=== PATIENT | male | born 1975 | race American Indian/Alaskan Native ===

== ENCOUNTER 2017-03-02 09:02 | Day surgery (SDC) | payer MEDICARE ==
--- NOTE | 2017-03-01 15:32 | History and Physical Report ---
History of Present Illness Date of examination: 03/01/17 Date of admission: 03/02/17 Chief complaint: 41-year-old man with painful swelling, and limitation of movement of long duration. Being treated with injections, anti-inflammatories, rehabilitation program with no improvement and therefore being admitted for arthroscopy, synovectomy and manipulation under anesthesia. Past History Past Medical History: arthritis, other (gout) Medications and Allergies Allergies Allergy/AdvReac Type Severity Reaction Status Date / Time No Known Allergies Allergy Verified 02/24/17 13:29 Home Medications Medication Instructions Recorded Confirmed Last Taken Type Allopurinol [Zyloprim] 300 mg PO QDAY 06/16/14 02/24/17 07/05/14 History traMADol [Ultram] 50 mg PO Q6HR PRN #14 tablet 06/16/14 02/24/17 Unknown Rx Ibuprofen [Motrin 800 MG tab] 800 mg PO Q8H PRN #20 tablet 11/03/14 02/24/17 Unknown Rx Indomethacin [Indocin] 25 mg PO PRN PRN 02/24/17 02/24/17 Unknown History Active Meds: Active Medications Cefazolin Sodium (Ancef/Sterile Water 2 Gm/20 Ml) 2 gm in 20 mls @ 80 mls/hr IV PREOP NR PRN Reason: Protocol Stop: 03/02/17 06:01 Review of Systems All systems: negative Exam - Constitutional General appearance: Present: no acute distress, well-nourished - EENT Eyes: Present: PERRL ENT: hearing intact, clear oral mucosa - Neck Neck: Present: supple, normal ROM - Respiratory Respiratory effort: normal Respiratory: bilateral: CTA - Cardiovascular Heart Sounds: Present: S1 & S2. Absent: rub, click - Extremities Extremities: pulses symmetrical, No edema, abnormal (Moderate limping, right- sided right knee with diffuse swelling, range of motion extension lag -10 flexion 85. Collateral ligaments are stable, patella for joint stable. No popliteal masses, no joint effusion. No neurovascular deficit.) Peripheral Pulses: within normal limits - Abdominal General gastrointestinal: Present: soft, non-tender, non-distended, normal bowel sounds Male genitourinary: Present: normal - Integumentary Integumentary: Present: clear, warm, dry - Musculoskeletal Musculoskeletal: gait normal, strength equal bilaterally - Psychiatric Psychiatric: appropriate mood/affect, intact judgment & insight - Neurologic Neurologic: CNII-XII intact, moves all extremities Assessment and Plan - Patient Problems (1) Arthrofibrosis of knee joint Status: Chronic Qualifiers: Laterality: right Qualified Code(s): M24.661 - Ankylosis, right knee Plan to address problem: manipulation under anesthesia, arthroscopy synovectomy.Procedure, complications and outcome discussed. We'll treat gout symptomatically.
[~2017-03-02 09:02] MED LIST: ADRENALIN IV ONE; ADRENALIN ONE; ANCEF/STERILE WATER 2 GM/20 ML 2 GM/20 ML SYRINGE IV NR; DILAUDID IV PRN; MARCAINE 0.5% 30 ML INFILTRATI ONE; MARCAINE 0.5% IJ ONE; PEPCID PO NR; VERSED IV NR
[2017-03-02] MEDS ORDERED: LACTATED RINGERS 1,000 ML IV SCH (10:00)
--- NOTE | 2017-03-02 10:36 | Anesthesia Day of Surgery ---
Anesthesia Day of Surgery - Day of Surgery Patient Examined: Yes Patient H&P Reviewed: Yes Patient is NPO: Yes
--- NOTE | 2017-03-02 10:36 | Anesthesia Consultation ---
Anesthesia Consult and Med Hx Date of service: 03/02/17 - Airway Anesthetic Teeth Evaluation: Good, Caps (top front teeth) ROM Head & Neck: Adequate Mental/Hyoid Distance: Adequate Mallampati Class: Class II Intubation Access Assessment: Probably Good - Pulmonary Exam CTA: Yes - Cardiac Exam Cardiac Exam: RRR - Pre-Operative Health Status ASA Pre-Surgery Classification: ASA2 Proposed Anesthetic Plan: General - Pulmonary Hx Smoking: No Hx Asthma: Yes ( CHILD ONLY) Hx Sleep Apnea: No (MACRINA PRE SCREEN HIGH RISK) - Cardiovascular System Hx Hypertension: No - Central Nervous System Hx Seizures: No CVA: No - Endocrine Hx End Stage Renal Disease: No Hx Cirrhosis: No Hx Non-Insulin Dependent Diabetes: No Hx Thyroid Disease: No Hx Hyperthyroidism: No - Other Systems Hx Cancer: No Hx Obesity: Yes
[2017-03-02] MEDS ORDERED: ZOFRAN IV PRN ×2 (11:00→13:33)
[2017-03-02] MEDS ORDERED: ZOFRAN ONE (11:05)
[2017-03-02] MEDS ORDERED: XYLOCAINE MPF 2% ONE (11:05)
[2017-03-02] MEDS ORDERED: DIPRIVAN 10 MG/ML IV ONE (11:06)
[2017-03-02] MEDS ORDERED: DILAUDID ONE ×2 (11:06→12:20)
[2017-03-02] MEDS ORDERED: ROBINUL ONE (11:22)
[2017-03-02] MEDS ORDERED: NEOSTIGMINE ONE (11:22)
[2017-03-02] MEDS ORDERED: ADRENALIN IV ONE (12:16)
[2017-03-02] MEDS ORDERED: ANCEF ONE (12:17)
[2017-03-02] MEDS ORDERED: MARCAINE 0.5% IJ ONE (13:00)
--- NOTE | 2017-03-02 13:03 | Discharge Summary ---
Providers - Providers Date of discharge: 03/02/17 Attending physician: KEITH TOPETE Primary care physician: AMORTIZATION SCHEDULE CLERK Hospitalization Reason for admission: arthro fibrosis/ gout/ synovitis right knee Condition: Stable Procedures: Arthroscopy/ debridment/ synovectomy right knee Hospital course: uneventful Disposition: DC-01 TO HOME OR SELFCARE - Discharge Diagnoses (1) Arthrofibrosis of knee joint Status: Chronic Qualifiers: Laterality: right Qualified Code(s): M24.661 - Ankylosis, right knee Core Measure Documentation - Palliative Care Palliative Care/ Comfort Measures: Not Applicable - Core Measures Any of the following diagnoses?: none Exam - Constitutional Vitals: Temp Pulse Resp BP Pulse Ox 99.0 F 98 H 18 132/96 99 03/02/17 10:12 03/02/17 10:12 03/02/17 10:12 03/02/17 10:12 03/02/17 10:12 Plan Activity: no driving until cleared by PCP, fall precautions Weight Bearing Status: Full Weight Bearing Diet: regular Wound: per your surgeon's advice Durable Medical Equipment Needed Upon Discharge: Crutches Follow up with: TELMA MALIK MD [Primary Care Provider] - 7 Days KEITH TOPETE MD [Staff Physician] - 7 Days
[2017-03-02] MEDS ORDERED: NACL 0.9% 1000 ML 1,000 ML ONE (13:11)
[2017-03-02] MEDS ORDERED: TYLENOL #3 PO PRN (13:31)
[2017-03-02] MEDS ORDERED: DILAUDID IV PRN (13:33)
--- NOTE | 2017-03-02 15:03 | Post Anesthesia Evaluation ---
- Post Anesthesia Evaluation Patient Participated: Yes Airway Patent: Yes Stable Respiratory Function: Yes Nausea/Vomiting: No Temp > 96.8F: Yes Pain Manageable: Yes Adequeate Hydration: Yes Anesthesia Complications: No Block Receding Appropriately: Not Applicable Patient on Ventilator: No
--- NOTE | 2017-03-02 16:36 | Operative Report ---
PREOPERATIVE DIAGNOSES: Gouty arthrosis with synovitis/arthrofibrosis, right knee. POSTOPERATIVE DIAGNOSES: Gouty arthrosis with synovitis/arthrofibrosis, right knee. OPERATIVE PROCEDURE: Debridement of right knee with synovectomy. SURGEON: Remi Stiles MD MCAT TUTOR: Rachell Wills CSA ANESTHESIA: General. TOURNIQUET TIME: 1 hour 10 minutes. PROCEDURE: The patient was taken to surgery suite. Satisfactory analgesia obtained with general anesthetics. Right lower limb prepped with ChloraPrep, satisfactorily draped. The patient procedure sites were confirmed. The standard arthroscopy portal anterior, superior, medial, and lateral were established. Inflow and outflow was then established. Diagnostic arthroscopy was carried out. 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 Synovial thickening with synovial deposits of crystalline substance to the synovial tissue, similar findings in all compartments.. Similar findings in the lateral and patellofemoral components. The meniscus generally appeared intact; however, with deposition of amorphous white crystalline structures. With the diagnostic arthroscopy was completed, the full-radius resector, medial, lateral and patellofemoral compartment and intercondylar area was then systematically debrided of the amorphous white crystalline substance from the articular surface and synovectomy was carried out. Biopsy was obtained from the intercondylar area and submitted to lab and joint fluid specimen was submitted for cultures, aerobic as well as anaerobic and Gram stain. Following thorough debridement, the knee joint cavity was thoroughly irrigated, scope and cannulas were withdrawn. Portals were infiltrated with 0.25% Marcaine plain for postop pain control. The patient was transferred to recovery room to be discharged when discharge criteria are met. HOMEGOING INSTRUCTIONS: Elevation, localized packs, crutch ambulation, weightbearing as tolerated, range of motion and quad hamstring exercises program. Follow up in 7-10 days. The patient will start on Outpatient Rehabilitation Program on 03/03/2017. JOB# [id number] BRII/ANA FINLEY
[2017-03-02 17:32] VITALS: BP 122/82
== END 2017-03-02 16:13 | disposition home or self-care (01) ==
LOC: OR 09:02
PROVIDERS: ATTEND Orthopaedic Surgery
DX: M24.661 Ankylosis, right knee (principal); M19.90 Unspecified osteoarthritis, unspecified site; M10.9 Gout, unspecified; E66.9 Obesity, unspecified; Z68.36 Body mass index [BMI] 36.0-36.9, adult; Z79.899 Other long term (current) drug therapy
CPT/HCPCS: 29875; 87116; 88304; 88305; 88311; 97116; 97161; J0171; J0690; J1170; J2250; J2405; J2704; J7030; J7120; J2710

== ENCOUNTER 2020-02-22 15:55 | Emergency (ER) | payer MEDICARE ==
[2020-02-22] MEDS ORDERED: IBUPROFEN 600 MG TAB PO ONE (16:12)
--- NOTE | 2020-02-22 16:12 | Event Note ---
ED Screening Note ED Screening Note: gout right knee right elbow began yesterday takes allopurinol and started a steroid dose pack last night last had a gout flare approximately two months ago he has not been feeling like fever at home no cough no SOB no n/v/d no sick contacts no recent travel no COVID exposure This initial assessment/diagnostic orders/clinical plan/treatment(s) is/are subject to change based on patients health status, clinical progression and re- assessment by fellow clinical providers in the ED. Further treatment and workup at subsequent clinical providers discretion. Patient/guardian urged not to elope from the ED as their condition may be serious if not clinically assessed and managed. Initial orders include: labs ibuprofen given for fever
[2020-02-22 16:50] LABS: Basophils % (Auto) 0.2 % (0.0-1.8); Hematocrit 37.7 % (35.5-45.6); Hemoglobin 12.2 gm/dl (11.8-15.2); Lymphocytes # (Auto) 0.8 K/mm3 (1.2-5.4); Lymphocytes % (Auto) 5.8 % (13.4-35.0); Mean Corpuscular HGB Conc 33 % (32-34); Mean Corpuscular Volume 90 fl (84-94); Monocytes # (Auto) 1.5 K/mm3 (0.0-0.8); Monocytes % (Auto) 10.6 % (0.0-7.3); Platelet Count 284 K/mm3 (140-440); Red Blood Count 4.21 M/mm3 (3.65-5.03); Red Cell Distribution Width 16.2 % (13.2-15.2)
[2020-02-22 17:09] LABS: Albumin 4.2 g/dL (3.9-5); Calcium 9.8 mg/dL (8.4-10.2); Uric Acid 11.2 mg/dL (3.5-7.6)
[2020-02-22 17:19] LABS: Erythrocyte Sedimentation Rate 50 mm/Hr (0-20)
[2020-02-22 17:27] LABS: C-Reactive Protein 38.6 mg/dL (0.00-1.30)
[2020-02-22] MEDS ORDERED: COLCHICINE 0.6 MG CAP PO ONE (17:54)
[2020-02-22] MEDS ORDERED: oxyCODONE /ACETAMINOPHEN 5-325MG TAB PO ONE (17:54)
[2020-02-22] MEDS ORDERED: SODIUM CHLORIDE 0.9% 1000 ML 1,000 ML IV ONE (18:14)
--- NOTE | 2020-02-22 18:14 | Emergency Department Report ---
ED General Adult HPI - General Chief complaint: Pain General Stated complaint: RT SIDE KNEE/ELBOW PAIN Time Seen by Provider: 02/22/20 16:07 Source: patient Mode of arrival: Wheelchair Limitations: No Limitations - History of Present Illness Initial comments: 44-year-old -[place] Citizen male presents to the emergency room complaining of right elbow right knee pain from gout flareup. It was reported that patient started a steroid pack last night. Patient does take allopurinol. Patient does admit that he has been eating meats. He denies any recent alcohol use. It was noted that patient had an elevated temperature of 101.9 and elevated blood pr essure 160/104 and tachycardic at 116. Patient reported that he is been feeling feverish but no cough runny nose abdominal pain sore throat dysuria. Severity scale (0 -10): 8 - Related Data Home Medications Medication Instructions Recorded Confirmed Last Taken allopurinoL [Zyloprim] 300 mg PO QDAY 06/16/14 03/02/17 03/01/17 08:00 Indomethacin [Indocin] 25 mg PO PRN PRN 02/24/17 03/02/17 02/23/17 09:00 Previous Rx's Medication Instructions Recorded Last Taken Type traMADoL [Ultram] 50 mg PO Q6HR PRN #14 tablet 06/16/14 03/01/17 20:00 Rx Ibuprofen [Motrin 800 MG tab] 800 mg PO Q8H PRN #20 tablet 11/03/14 02/23/17 09:00 Rx Colchicine 0.6 mg PO BID 7 Days #14 capsule 02/22/20 Unknown Rx Oxycodone HCl/Acetaminophen 1 each PO Q6HR PRN #12 tablet 02/22/20 Unknown Rx [Percocet 7.5/325 mg] predniSONE [Deltasone] 10 mg PO DAILY #70 tablet 02/22/20 Unknown Rx Allergies Allergy/AdvReac Type Severity Reaction Status Date / Time No Known Allergies Allergy Verified 02/24/17 13:29 ED Review of Systems ROS: Stated complaint: RT SIDE KNEE/ELBOW PAIN Other details as noted in HPI ED Past Medical Hx - Past Medical History Previous Medical History?: Yes Hx Hypertension: No Hx Seizures: No Hx Asthma: Yes ( CHILD ONLY) Additional medical history: gout - Surgical History Past Surgical History?: No - Social History Smoking Status: Never Smoker Substance Use Type: Alcohol - Medications Home Medications: Home Medications Medication Instructions Recorded Confirmed Last Taken Type allopurinoL [Zyloprim] 300 mg PO QDAY 06/16/14 03/02/17 03/01/17 08:00 History traMADoL [Ultram] 50 mg PO Q6HR PRN #14 tablet 06/16/14 03/02/17 03/01/17 20:00 Rx Ibuprofen [Motrin 800 MG tab] 800 mg PO Q8H PRN #20 tablet 11/03/14 03/02/17 02/23/17 09:00 Rx Indomethacin [Indocin] 25 mg PO PRN PRN 02/24/17 03/02/17 02/23/17 09:00 History Colchicine 0.6 mg PO BID 7 Days #14 capsule 02/22/20 Unknown Rx Oxycodone HCl/Acetaminophen 1 each PO Q6HR PRN #12 tablet 02/22/20 Unknown Rx [Percocet 7.5/325 mg] predniSONE [Deltasone] 10 mg PO DAILY #70 tablet 02/22/20 Unknown Rx ED Physical Exam - General Limitations: No Limitations ED Course Vital Signs 02/22/20 02/22/20 15:56 16:08 Temperature 101.2 F H 101.9 F H Pulse Rate 118 H 116 H Respiratory 20 Rate Blood Pressure 160/104 Blood Pressure 150/102 [Right] O2 Sat by Pulse 99 Oximetry ED Medical Decision Making - Lab Data Result diagrams: 02/22/20 16:25 02/22/20 16:25 Laboratory Tests 02/22/20 02/22/20 16:25 16:25 WBC 14.1 H RBC 4.21 Hgb 12.2 Hct 37.7 MCV 90 MCH 29 MCHC 33 RDW 16.2 H Plt Count 284 Lymph % (Auto) 5.8 L [place] % (Auto) 10.6 H Eos % (Auto) 0.0 Baso % (Auto) 0.2 Lymph # 0.8 L [place] # 1.5 H Eos # 0.0 Baso # 0.0 Seg Neutrophils % 83.4 H Seg Neutrophils # 11.7 H ESR 50 Sodium 138 Potassium 3.9 Chloride 97.2 L Carbon Dioxide 23 Anion Gap 22 BUN 12 Creatinine 1.6 H Estimated GFR 57 BUN/Creatinine Ratio 8 Glucose 140 H Uric Acid 11.2 H Calcium 9.8 Total Bilirubin 1.60 H AST 27 ALT 38 Alkaline Phosphatase 193 H C-Reactive Protein 38.60 H Total Protein 9.1 H Albumin 4.2 Albumin/Globulin Ratio 0.9 - Medical Decision Making 44-year-old -[place] Citizen male presents to the emergency room complaining of right elbow right knee pain from gout flareup. It was reported that patient started a steroid pack last night. Patient does take allopurinol. Patient does admit that he has been eating meats. He denies any recent alcohol use. It was noted that patient had an elevated temperature of 101.9 and elevated blood pressure 160/104 and tachycardic at 116. Patient reported that he is been feeling feverish but no cough runny nose abdominal pain sore throat dysuria. Spoke to Dr. Zapien attending physician who recommend patient to be admitted talk to Dr. Sinha hospitalist he evaluated patient and felt that patient would be best managed on outpatient basis. Dr. Franz recommend patient to be on prednisone 50 mg for 5 days and taper by 10 mg every 5 days until he is completed. He also recommend colchicine 0.6 mg twice daily for 7 and Percocet 7.5 mg every 6 hours for the next 3 days. I discussed with patient the plan. Also discussed with patient that he needs to follow-up with his primary care provider in the next 3 to 5 days to inform him of his labs. Patient had a bump in his creatinine from 1.2-1.6. Patient also had 100 deciliters of protein in urine with Isolette. Patient had marginally elevated LFTs. Uric acid was 11.2. Critical care attestation.: If time is entered above; I have spent that time in minutes in the direct care of this critically ill patient, excluding procedure time. ED Disposition Clinical Impression: Gout flare, Fever, Hypertension Disposition: DC-01 TO HOME OR SELFCARE Is pt being admited?: No Does the pt Need Aspirin: No Condition: Stable Instructions: Hypertension (ED) Additional Instructions: Please take medications as prescribed. Follow-up with your primary care provider in the next 3 to 5 days. As you need to have your kidney function repeated blood pressure checked. Do not operate heavy machinery while taking the Percocet. Please straight away from organ meat red meat alcohol seafood. Increase your water intake by 2 L daily. Prescriptions: Colchicine 0.6 mg PO BID 7 Days #14 capsule predniSONE [Deltasone] 10 mg PO DAILY #70 tablet Oxycodone HCl/Acetaminophen [Percocet 7.5/325 mg] 1 each PO Q6HR PRN #12 tablet PRN Reason: Pain Referrals: PRIMARY CAREMD [Primary Care Provider] - 3-5 Days CECI ALAS MD [Staff Physician] - 3-5 Days Forms: Work/School Release Form(ED)
[2020-02-22 19:47] VITALS: BP 123/78
--- NOTE | 2020-02-22 20:22 | Consultation ---
History of Present Illness - Reason for Consult Consult date: 02/22/20 Management of acute gout Requesting physician: VINCENT HINOJOSA - History of Present Illness 44-year-old -[place] male comes in for severe right knee and right elbow pain for the last 3 to 4 days. Patient started on low-dose steroids yesterday. Patient has been eating red meat. Patient is on allopurinol for prevention of gout. In the emergency room his uric acid was around 11. Is has right knee and elbow warm to touch. Patient has a temperature of 101.9. No cough or chills. No exposure to coronavirus. Past History Past Medical History: other (Gout and asthma) Past Surgical History: No surgical history Social history: no significant social history, lives with family, full code Family history: hypertension Medications and Allergies Allergies Allergy/AdvReac Type Severity Reaction Status Date / Time No Known Allergies Allergy Verified 02/24/17 13:29 Home Medications Medication Instructions Recorded Confirmed Last Taken Type allopurinoL [Zyloprim] 300 mg PO QDAY 06/16/14 03/02/17 03/01/17 08:00 History traMADoL [Ultram] 50 mg PO Q6HR PRN #14 tablet 06/16/14 03/02/17 03/01/17 20:00 Rx Ibuprofen [Motrin 800 MG tab] 800 mg PO Q8H PRN #20 tablet 11/03/14 03/02/17 0 02/23/17 09:00 Rx Indomethacin [Indocin] 25 mg PO PRN PRN 02/24/17 03/02/17 02/23/17 09:00 History Colchicine 0.6 mg PO BID 7 Days #14 capsule 02/22/20 Unknown Rx Oxycodone HCl/Acetaminophen 1 each PO Q6HR PRN #12 tablet 02/22/20 Unknown Rx [Percocet 7.5/325 mg] predniSONE [Deltasone] 10 mg PO DAILY #70 tablet 02/22/20 Unknown Rx Review of Systems All systems: negative Constitutional: fever, no weight loss, no weight gain, no chills, no sweats, no night sweats Ears, nose, mouth and throat: no ear pain, no ear discharge, no tinnitis, no decreased hearing Cardiovascular: no chest pain, no orthopnea, no palpitations, no rapid/irregular heart beat Gastrointestinal: no abdominal pain, no nausea, no vomiting, no diarrhea, no constipation Genitourinary Male: no urinary frequency, no urinary hesitancy, no nocturia Rectal: no pain Musculoskeletal: hot joints (Right knee and right elbow is swollen and warm to touch), no neck stiffness, no neck pain, no shooting arm pain, no arm numbness/tingling Integumentary: redness (Redness of the right knee and right elbow joint), no rash, no pruritis Neurological: no seizures, no syncope Psychiatric: no anxiety, no memory loss, no change in sleep habits, no sleep disturbances, no insomnia, no change in appetite Endocrine: no cold intolerance, no heat intolerance, no polyphagia, no excessive thirst, no polydipsia Hematologic/Lymphatic: no easy bruising, no easy bleeding Allergic/Immunologic: no urticaria, no allergic rhinitis, no wheezing Exam - Constitutional Vitals: Temp Pulse Resp BP Pulse Ox 97.8 F 88 18 123/78 100 02/22/20 19:47 02/22/20 19:47 02/22/20 19:47 02/22/20 19:47 02/22/20 19:47 General appearance: Present: no acute distress, well-nourished - EENT Eyes: Present: PERRL ENT: hearing intact, clear oral mucosa - Neck Neck: Present: supple, normal ROM - Respiratory Respiratory effort: normal Respiratory: bilateral: CTA - Cardiovascular Heart rate: 78 Rhythm: regular Heart Sounds: Present: S1 & S2. Absent: rub, click - Extremities Extremities: pulses symmetrical, No edema, abnormal (Right knee and right elbow swollen and warm to touch) Extremity abnormal: tenderness (Tenderness on the right elbow and right knee), other (Right knee and right elbow warm to touch and swollen but patient able to walk easily) Peripheral Pulses: within normal limits - Abdominal General gastrointestinal: Present: soft, non-tender, non-distended, normal bowel sounds Male genitourinary: Present: normal - Integumentary Integumentary: Present: clear, warm, dry - Musculoskeletal Musculoskeletal: gait normal, strength equal bilaterally - Psychiatric Psychiatric: appropriate mood/affect, intact judgment & insight - Neurologic Neurologic: CNII-XII intact, moves all extremities Results - Labs CBC & Chem 7: 02/22/20 16:25 02/22/20 16:25 Labs: Abnormal lab results 02/22/20 02/22/20 Range/Units 16:25 16:25 WBC 14.1 H (4.5-11.0) K/mm3 RDW 16.2 H (13.2-15.2) % Lymph % (Auto) 5.8 L (13.4-35.0) % [place] % (Auto) 10.6 H (0.0-7.3) % Lymph # 0.8 L (1.2-5.4) K/mm3 [place] # 1.5 H (0.0-0.8) K/mm3 Seg Neutrophils % 83.4 H (40.0-70.0) % Seg Neutrophils # 11.7 H (1.8-7.7) K/mm3 Chloride 97.2 L (98-107) mmol/L Creatinine 1.6 H (0.8-1.5) mg/dL Glucose 140 H (75-100) mg/dL Uric Acid 11.2 H (3.5-7.6) mg/dL Total Bilirubin 1.60 H (0.1-1.2) mg/dL Alkaline Phosphatase 193 H (35-129) units/L C-Reactive Protein 38.60 H (0.00-1.30) mg/dL Total Protein 9.1 H (6.3-8.2) g/dL Short CBC 02/22/20 Range/Units 16:25 WBC 14.1 H (4.5-11.0) K/mm3 Hgb 12.2 (11.8-15.2) gm/dl Hct 37.7 (35.5-45.6) % Plt Count 284 (140-440) K/mm3 BMP 02/22/20 16:25 Sodium 138 Potassium 3.9 Chloride 97.2 L Carbon Dioxide 23 BUN 12 Creatinine 1.6 H Glucose 140 H Calcium 9.8 Liver Function 02/22/20 Range/Units 16:25 Total Bilirubin 1.60 H (0.1-1.2) mg/dL AST 27 (5-40) units/L ALT 38 (7-56) units/L Alkaline Phosphatase 193 H (35-129) units/L Albumin 4.2 (3.9-5) g/dL Short CBC 02/22/20 Range/Units 16:25 WBC 14.1 H (4.5-11.0) K/mm3 Hgb 12.2 (11.8-15.2) gm/dl Hct 37.7 (35.5-45.6) % Plt Count 284 (140-440) K/mm3 BMP 02/22/20 16:25 Sodium 138 Potassium 3.9 Chloride 97.2 L Carbon Dioxide 23 BUN 12 Creatinine 1.6 H Glucose 140 H Calcium 9.8 Liver Function 02/22/20 Range/Units 16:25 Total Bilirubin 1.60 H (0.1-1.2) mg/dL AST 27 (5-40) units/L ALT 38 (7-56) units/L Alkaline Phosphatase 193 H (35-129) units/L Albumin 4.2 (3.9-5) g/dL Assessment and Plan - Patient Problems (1) Acute gout Current Visit: Yes Status: Acute Qualifiers: Gout site: knee Laterality: right Plan to address problem: Right knee and right elbow swollen and warm to touch. Patient's uric acid is 11.2 Patient initiated on tapering dose of prednisone starting from 50 mg for 5 days then 40 mg for 5 days then 30 mg for 5 days then 20 mg for 5 days and stop with 10 mg for 5 days. Patient also initiated on colchicine 0.6 twice daily for 7 days and Percocet and probenecid and to continue allopurinol. Follow-up with PCP as outpatient. (2) BRIAN (acute kidney injury) Current Visit: Yes Status: Acute Plan to address problem: To drink plenty of fluids and recheck creatinine level as outpatient NSAIDS were not given (3) Discharge planning issues Current Visit: Yes Status: Acute Plan to address problem: Patient discharged home with tapering dose of prednisone from 50 mg to 10 mg over 25 to 30 days. Also patient was given an given Percocets and probenecid and colchicine 0.6 twice a day.
[2020-02-22 20:34] LABS: Bilirubin,Urine NEG (Negative); Blood,Urine SM (Negative); Color,Urine Amber (Yellow); Mucus,Urine FEW /HPF
== END 2020-02-22 20:25 | disposition home or self-care (01) ==
LOC: ED 15:55
DX: M10.9 Gout, unspecified (principal); R50.9 Fever, unspecified; I10 Essential (primary) hypertension; J45.909 Unspecified asthma, uncomplicated; Z79.1 Long term (current) use of non-steroidal anti-inflammatories (NSAID); Z79.899 Other long term (current) drug therapy
CPT/HCPCS: 36415; 80053; 81001; 84550; 85025; 85652; 86140; 99283; J7030

== ENCOUNTER 2020-12-29 10:26 | Outpatient (CLI) | payer MEDICARE ==
[2020-12-29] MEDS ORDERED: LIDOCAINE (4%) 40 MG/ML TOPICAL SOLN 50 ML BOTTLE TP ONE (11:59)
== END 2020-12-29 10:27 | disposition home or self-care (01) ==
LOC: WOUND 10:26
PROVIDERS: ATTEND Surgery
DX: S30.860A Insect bite (nonvenomous) of lower back and pelvis, initial encounter (principal); M10.9 Gout, unspecified; L02.31 Cutaneous abscess of buttock; W57.XXXA Bitten or stung by nonvenomous insect and other nonvenomous arthropods, initial encounter; Y93.89 Activity, other specified; Y92.89 Other specified places as the place of occurrence of the external cause; Y99.8 Other external cause status
CPT/HCPCS: 11042; G0463; 99214

== ENCOUNTER 2021-01-05 13:17 | Emergency (ER) | payer MEDICARE ==
--- NOTE | 2021-01-05 16:36 | Event Note ---
ED Screening Note Date of service: 01/05/21 Time: 16:35 ED Screening Note: 45-year-old -[place] male presents to the emergency room stating that his gout has flared up in his left hand right knee. Patient also is being of followed by Dr. 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 Patient had debridement done was on IV antibiotics. He states that he is having more pain. He reports he had talked to Dr. Martin and she recommended patient to come in to be evaluated. This initial assessment/diagnostic orders/clinical plan/treatment(s) is/are subject to change based on patients health status, clinical progression and re- assessment by fellow clinical providers in the ED. Further treatment and workup at subsequent clinical providers discretion. Patient/guardian urged not to elope from the ED as their condition may be serious if not clinically assessed and managed. Initial orders include:
[2021-01-05 17:07] LABS: Hematocrit 27.1 % (35.5-45.6); Hemoglobin 8.8 gm/dl (11.8-15.2); Mean Corpuscular HGB Conc 32 % (32-34); Mean Corpuscular Volume 84 fl (84-94); Platelet Count 232 K/mm3 (140-440); Red Blood Count 3.25 M/mm3 (3.65-5.03)
[2021-01-05] MEDS ORDERED: LACTATED RINGERS 1,000 ML IV ONE (17:07)
[2021-01-05] MEDS ORDERED: HYDROmorphone 1 MG/1 ML INJ IV ONE (17:07)
[2021-01-05] MEDS ORDERED: COLCHICINE 0.6 MG TAB PO ONE ×2 (17:08→17:56)
[2021-01-05] MEDS ORDERED: ACETAMINOPHEN 500 MG TAB PO ONE (17:08)
--- NOTE | 2021-01-05 17:09 | Emergency Department Report ---
ED General Adult HPI - General Chief complaint: Weakness Stated complaint: WEAKNESS PUI?: No Time Seen by Provider: 01/05/21 16:58 Source: patient, RN notes reviewed, old records reviewed Mode of arrival: Wheelchair Limitations: Physical Limitation - History of Present Illness Initial comments: The patient was evaluated in the emergency department for symptoms described in the history of present illness. He/she was evaluated in the context of the global COVID-19 pandemic, which necessitated consideration that the patient mi ght be at risk for infection with the virus that causes COVID-19. Institutional protocols and algorithms that pertain to the evaluation of patients at risk for COVID-19 are in a state of rapid change based on information released by regulatory bodies including the CDC and federal and state organizations. These policies and algorithms were followed during the patient's care in the emergency department. Please note that these policies, procedures and recommendations changed on a rapid basis. The patient is a 45-year-old gentleman, with a history of body mass index 31.9, presumed gout, recently admitted to this hospital for right gluteal cellulitis and abscess, status post incision and drainage of gluteal abscess, also with a history of chronic anemia, and chronic leukocytosis. Primary CARE doctor: Dr. Porfirio Jones General surgeon: Dr Meena Martínez The patient presents to the ER today with a complaint of "my wound nurse told me to come here today." Apparently, the wound nurse was concerned about the patient's right gluteal wound. The patient himself complains of generalized weakness, polyarthritis, left wrist pain, question fever, without headache, neck pain, chest pain, abdominal pain, new/different shortness of breath, posterior leg pain and leg swelling. The patient endorses generalized weakness, he denies loss of taste and smell. He denies urinary symptoms, and denies hematemesis and bright red blood per rectum. He has diffuse arthralgias, most prominent in his left wrist, and left hand, which is nontraumatic, pain is throbbing, increases with palpation and decreases with rest. -: Gradual, days(s) Location: buttocks (Right gluteal cheek), left, upper extremity Severity scale (0 -10): 10 Quality: aching Consistency: constant Improves with: rest Worsens with: movement - Related Data Home Medications Medication Instructions Recorded Confirmed Last Taken allopurinoL [Zyloprim] 300 mg PO QDAY 06/16/14 12/08/20 03/01/17 08:00 Previous Rx's Medication Instructions Recorded Last Taken Type HYDROcodone/APAP 5-325 [[place] 1 each PO Q4H PRN #14 tablet 12/15/20 Unknown Rx 5-325 mg TAB] Linezolid [Zyvox] 600 mg PO Q12HR #20 tablet 12/15/20 Unknown Rx allopurinoL [Zyloprim] 300 mg PO QDAY tablet 12/15/20 Unknown Rx Acetaminophen [Non-Aspirin Extra 500 mg PO Q6HR PRN #30 tablet 01/05/21 Unknown Rx Strength] Ibuprofen [Motrin 800 MG tab] 800 mg PO Q8HR PRN #30 tablet 01/05/21 Unknown Rx Ibuprofen [Motrin] 600 mg PO Q8H PRN #30 tablet 01/05/21 Unknown Rx Magnesium Oxide 400 mg PO QDAY #30 tablet 01/05/21 Unknown Rx methylPREDNISolone [Medrol 4MG 4 mg PO QDAY #1 tab.ds.pk 01/05/21 Unknown Rx DOSEPAK (21 tabs)] Allergies Allergy/AdvReac Type Severity Reaction Status Date / Time No Known Allergies Allergy Verified 02/24/17 13:29 ED Review of Systems ROS: Stated complaint: WEAKNESS Other details as noted in HPI Constitutional: malaise, weakness, other (Denies loss of taste and smell). denies: fever Eyes: denies: eye discharge ENT: denies: congestion Respiratory: denies: cough, shortness of breath Cardiovascular: palpitations (Heart racing and palpitation). denies: chest pain Gastrointestinal: denies: abdominal pain, nausea, vomiting, hematemesis, melena, hematochezia Musculoskeletal: joint swelling, arthralgia, myalgia Neurological: weakness Psychiatric: anxiety ED Past Medical Hx - Past Medical History Hx Hypertension: No Hx Heart Attack/AMI: No Hx Congestive Heart Failure: No Hx Diabetes: No Hx Liver Disease: No Hx Renal Disease: No Hx Seizures: No Hx Asthma: Yes ( CHILD ONLY) Hx COPD: No Additional medical history: gout - Social History Smoking Status: Never Smoker - Medications Home Medications: Home Medications Medication Instructions Recorded Confirmed Last Taken Type allopurinoL [Zyloprim] 300 mg PO QDAY 06/16/14 12/08/20 03/01/17 08:00 History HYDROcodone/APAP 5-325 [[place] 1 each PO Q4H PRN #14 tablet 12/15/20 Unknown Rx 5-325 mg TAB] Linezolid [Zyvox] 600 mg PO Q12HR #20 tablet 12/15/20 Unknown Rx allopurinoL [Zyloprim] 300 mg PO QDAY tablet 12/15/20 Unknown Rx Acetaminophen [Non-Aspirin Extra 500 mg PO Q6HR PRN #30 tablet 01/05/21 Unknown Rx Strength] Ibuprofen [Motrin 800 MG tab] 800 mg PO Q8HR PRN #30 tablet 01/05/21 Unknown Rx Ibuprofen [Motrin] 600 mg PO Q8H PRN #30 tablet 01/05/21 Unknown Rx Magnesium Oxide 400 mg PO QDAY #30 tablet 01/05/21 Unknown Rx methylPREDNISolone [Medrol 4MG 4 mg PO QDAY #1 tab.ds.pk 01/05/21 Unknown Rx DOSEPAK (21 tabs)] ED Physical Exam - General Limitations: Physical Limitation General appearance: alert, anxious, in distress, obese - Head Head exam: Present: atraumatic, normocephalic - Eye Eye exam: Present: normal appearance, EOMI. Absent: nystagmus - ENT ENT exam: Present: normal exam, normal orophraynx, mucous membranes moist, normal external ear exam - Neck Neck exam: Present: normal inspection, full ROM. Absent: tenderness, meningismus - Respiratory Respiratory exam: Present: normal lung sounds bilaterally. Absent: respiratory distress, wheezes, rales, rhonchi, stridor, decreased breath sounds - Cardiovascular Cardiovascular Exam: Present: normal rhythm, tachycardia, normal heart sounds. Absent: bradycardia, irregular rhythm, systolic murmur, diastolic murmur, rubs, gallop - GI/Abdominal GI/Abdominal exam: Present: soft. Absent: distended, tenderness, guarding, rebound, rigid, pulsatile mass - Rectal Rectal exam: Present: normal inspection (Chaperoned by nurse Kristi Stout. Surgical site healing well, without redness, pus, streaking or obvious necrotic tissue) - Extremities Exam Extremities exam: Present: normal inspection, tenderness (The left wrist is diffusely tender, without redness, pus or streaking. Range of motion limited secondary to pain, but patient does have partial passive and active range of motion of the left wrist), other (2+ pulses noted in the bilateral upper and lower extremities. There is no long bony tenderness. The muscular compartments are soft. The pelvis is stable. There is no palpable cord.). Absent: calf tenderness - Back Exam Back exam: Present: normal inspection. Absent: tenderness, CVA tenderness (R), CVA tenderness (L), paraspinal tenderness, vertebral tenderness - Neurological Exam Neurological exam: Present: alert, other (No facial droop. Tongue midline. Extraocular movements intact bilaterally. Facial sensation intact to light touch in V1, V2, V3 distribution bilaterally. 5 and a 5 strength in 4 extremities. Sensation intact to light touch in 4 extremities.) - Psychiatric Psychiatric exam: Present: anxious - Skin Skin exam: Present: warm, dry, intact, normal color ED Course Vital Signs 01/05/21 01/05/21 01/05/21 14:07 20:00 20:16 Temperature 98.5 F Pulse Rate 122 H 105 H 107 H Respiratory 18 22 24 Rate Blood Pressure 130/94 126/93 Blood Pressure 142/106 [Right] O2 Sat by Pulse 97 99 99 Oximetry 01/05/21 01/05/21 01/05/21 20:30 20:46 21:00 Temperature Pulse Rate 101 H 98 H 99 H Respiratory 21 16 21 Rate Blood Pressure 122/83 130/94 117/82 Blood Pressure [Right] O2 Sat by Pulse 99 100 100 Oximetry 01/05/21 21:15 Temperature Pulse Rate 96 H Respiratory 22 Rate Blood Pressure 122/83 Blood Pressure [Right] O2 Sat by Pulse Oximetry - Reevaluation(s) Reevaluation #1: 01/05/21 18:52 Differential diagnosis, including but not limited to: Wound check, gout, chronic anemia, pneumonia, deconditioning, debility, pulmonary embolism Assessment and plan: 45-year-old gentleman, with a complaint of request for wound check and evaluation, nontraumatic left wrist pain and polyarthritis, malaise and fatigue. The patient is afebrile with reassuring vital signs with the exception of tachycardia. After initial round of pain medication, tachycardia improving, heart rate 110 bpm. His wound appears to be clean and healing well, he does not have redness, pus or streaking over his major joints, and range of motion is intact in the right upper extremity, bilateral lower extremities, left elbow, and left shoulder. We do suspect that he has an acute gouty flare of his left wrist. We will also give Toradol, steroids, and IV fluids. Given tachycardia, left axis deviation, left anterior fascicular block, poor mobility, recent admission and hospitalization, we are concerned about the po ssibility for pulmonary embolism, although the patient has no chest pain or shortness of breath, however, prior EKG is not available for my review. Therefore, D-dimer sent, elevated, therefore, CT scan of the chest will be obtained. We will treat his hypomagnesemia. At the moment, patient resting comfortably in stretcher, appears to be more comfortable after initial hydromorphone. 01/05/21 19:13 Patient resting comfortably, heart rate 110 bpm. 01/05/21 19:22 Reevaluation #2: 01/05/21 19:30 care will be transferred to the oncoming the oncoming ER physician, Dr Obed Torres, to follow up on cta chest and reevaluation after fluids and analgesia anticipate that if cta chest negative, tachycardia resolves, and pain decreases/range of motion improves, we would anticipate this patient would be suitable for discharge ED Medical Decision Making - Lab Data Result diagrams: 01/05/21 16:34 01/05/21 16:34 Vital Signs 01/05/21 14:07 Temperature 98.5 F Pulse Rate 122 H Respiratory 18 Rate Blood Pressure 142/106 [Right] O2 Sat by Pulse 97 Oximetry Lab Results 01/05/21 01/05/21 01/05/21 Range/Units 16:34 16:34 16:34 WBC 11.9 H (4.5-11.0) K/mm3 RBC 3.25 L (3.65-5.03) M/mm3 Hgb 8.8 L (11.8-15.2) gm/dl Hct 27.1 L (35.5-45.6) % MCV 84 (84-94) fl MCH 27 L (28-32) pg MCHC 32 (32-34) % RDW 20.0 H (13.2-15.2) % Plt Count 232 (140-440) K/mm3 Add Manual Diff Complete Total Counted 100 Seg Neuts % (Manual) 74.0 H (40.0-70.0) % Lymphocytes % (Manual) 18.0 (13.4-35.0) % Monocytes % (Manual) 8.0 H (0.0-7.3) % Nucleated RBC % Not Reportable Seg Neutrophils # Man 8.8 H (1.8-7.7) K/mm3 Band Neutrophils # 0.0 K/mm3 Lymphocytes # (Manual) 2.1 (1.2-5.4) K/mm3 Abs React Lymphs (Man) 0.0 K/mm3 Monocytes # (Manual) 1.0 H (0.0-0.8) K/mm3 Eosinophils # (Manual) 0.0 (0.0-0.4) K/mm3 Basophils # (Manual) 0.0 (0.0-0.1) K/mm3 Metamyelocytes # 0.0 K/mm3 Myelocytes # 0.0 K/mm3 Promyelocytes # 0.0 K/mm3 Blast Cells # 0.0 K/mm3 WBC Morphology Not Reportable Hypersegmented Neuts Not Reportable Hyposegmented Neuts Not Reportable Hypogranular Neuts Not Reportable Smudge Cells Not Reportable Toxic Granulation Not Reportable Toxic Vacuolation Not Reportable Dohle Bodies Not Reportable Pelger-Huet Anomaly Not Reportable Nicolas Rods Not Reportable Platelet Estimate Not Reportable Clumped Platelets Not Reportable Plt Clumps, EDTA Not Reportable Large Platelets Not Reportable Giant Platelets Not Reportable Platelet Satelliting Not Reportable Plt Morphology Comment Not Reportable RBC Morphology Not Reportable Dimorphic RBCs Not Reportable Polychromasia Not Reportable Hypochromasia Not Reportable Poikilocytosis Not Reportable Anisocytosis Rare Microcytosis 1+ Macrocytosis Not Reportable Spherocytes 1+ Pappenheimer Bodies Not Reportable Sickle Cells Not Reportable Target Cells Not Reportable Tear Drop Cells Not Reportable Ovalocytes Not Reportable Helmet Cells Not Reportable [place] Bodies Not Reportable [place] Rings Not Reportable [place] Cells Not Reportable Bite Cells Not Reportable Crenated Cell Not Reportable Elliptocytes Not Reportable Acanthocytes (Spur) Not Reportable Rouleaux Not Reportable Hemoglobin C Crystals Not Reportable Schistocytes Not Reportable Malaria parasites Not Reportable ESR 120 (0-20) mm/Hr Lyle Bodies Not Reportable Hem Pathologist Commnt No PT (12.2-14.9) Sec. INR (0.87-1.13) D-Dimer (0-234) ng/mlDDU Sodium 134 L (137-145) mmol/L Potassium 3.6 (3.6-5.0) mmol/L Chloride 95.4 L (98-107) mmol/L Carbon Dioxide 25 (22-30) mmol/L Anion Gap 17 mmol/L BUN 9 (9-20) mg/dL Creatinine 1.1 (0.8-1.3) mg/dL Estimated GFR > 60 ml/min BUN/Creatinine Ratio 8 % Glucose 104 H (75-100) mg/dL Uric Acid (3.5-7.6) mg/dL Calcium 9.4 (8.4-10.2) mg/dL Magnesium (1.7-2.3) mg/dL Total Bilirubin 1.30 H (0.1-1.2) mg/dL AST 24 (5-40) units/L ALT 23 (7-56) units/L Alkaline Phosphatase 234 H (35-129) units/L Total Creatine Kinase (55-170) units/L Troponin T (0.00-0.029) ng/mL C-Reactive Protein 30.60 H (0.00-1.30) mg/dL Total Protein 8.9 H (6.3-8.2) g/dL Albumin 3.5 L (3.9-5) g/dL Albumin/Globulin Ratio 0.6 % 01/05/21 01/05/21 01/05/21 Range/Units 16:34 17:11 17:11 WBC (4.5-11.0) K/mm3 RBC (3.65-5.03) M/mm3 Hgb (11.8-15.2) gm/dl Hct (35.5-45.6) % MCV (84-94) fl MCH (28-32) pg MCHC (32-34) % RDW (13.2-15.2) % Plt Count (140-440) K/mm3 Add Manual Diff Total Counted Seg Neuts % (Manual) (40.0-70.0) % Lymphocytes % (Manual) (13.4-35.0) % Monocytes % (Manual) (0.0-7.3) % Nucleated RBC % Seg Neutrophils # Man (1.8-7.7) K/mm3 Band Neutrophils # K/mm3 Lymphocytes # (Manual) (1.2-5.4) K/mm3 Abs React Lymphs (Man) K/mm3 Monocytes # (Manual) (0.0-0.8) K/mm3 Eosinophils # (Manual) (0.0-0.4) K/mm3 Basophils # (Manual) (0.0-0.1) K/mm3 Metamyelocytes # K/mm3 Myelocytes # K/mm3 Promyelocytes # K/mm3 Blast Cells # K/mm3 WBC Morphology Hypersegmented Neuts Hyposegmented Neuts Hypogranular Neuts Smudge Cells Toxic Granulation Toxic Vacuolation Dohle Bodies Pelger-Huet Anomaly Nicolas Rods Platelet Estimate Clumped Platelets Plt Clumps, EDTA Large Platelets Giant Platelets Platelet Satelliting Plt Morphology Comment RBC Morphology Dimorphic RBCs Polychromasia Hypochromasia Poikilocytosis Anisocytosis Microcytosis Macrocytosis Spherocytes Pappenheimer Bodies Sickle Cells Target Cells Tear Drop Cells Ovalocytes Helmet Cells [place] Bodies [place] Rings Salty Cells Bite Cells Crenated Cell Elliptocytes Acanthocytes (Spur) Rouleaux Hemoglobin C Crystals Schistocytes Malaria parasites ESR (0-20) mm/Hr Lyle Bodies Hem Pathologist Commnt PT 14.8 (12.2-14.9) Sec. INR 1.16 H (0.87-1.13) D-Dimer 1923.38 H (0-234) ng/mlDDU Sodium (137-145) mmol/L Potassium (3.6-5.0) mmol/L Chloride (98-107) mmol/L Carbon Dioxide (22-30) mmol/L Anion Gap mmol/L BUN (9-20) mg/dL Creatinine (0.8-1.3) mg/dL Estimated GFR ml/min BUN/Creatinine Ratio % Glucose (75-100) mg/dL Uric Acid 8.3 H (3.5-7.6) mg/dL Calcium (8.4-10.2) mg/dL Magnesium 1.60 L (1.7-2.3) mg/dL Total Bilirubin (0.1-1.2) mg/dL AST (5-40) units/L ALT (7-56) units/L Alkaline Phosphatase (35-129) units/L Total Creatine Kinase 25 L (55-170) units/L Troponin T (0.00-0.029) ng/mL C-Reactive Protein (0.00-1.30) mg/dL Total Protein (6.3-8.2) g/dL Albumin (3.9-5) g/dL Albumin/Globulin Ratio % 01/05/21 Range/Units 17:11 WBC (4.5-11.0) K/mm3 RBC (3.65-5.03) M/mm3 Hgb (11.8-15.2) gm/dl Hct (35.5-45.6) % MCV (84-94) fl MCH (28-32) pg MCHC (32-34) % RDW (13.2-15.2) % Plt Count (140-440) K/mm3 Add Manual Diff Total Counted Seg Neuts % (Manual) (40.0-70.0) % Lymphocytes % (Manual) (13.4-35.0) % Monocytes % (Manual) (0.0-7.3) % Nucleated RBC % Seg Neutrophils # Man (1.8-7.7) K/mm3 Band Neutrophils # K/mm3 Lymphocytes # (Manual) (1.2-5.4) K/mm3 Abs React Lymphs (Man) K/mm3 Monocytes # (Manual) (0.0-0.8) K/mm3 Eosinophils # (Manual) (0.0-0.4) K/mm3 Basophils # (Manual) (0.0-0.1) K/mm3 Metamyelocytes # K/mm3 Myelocytes # K/mm3 Promyelocytes # K/mm3 Blast Cells # K/mm3 WBC Morphology Hypersegmented Neuts Hyposegmented Neuts Hypogranular Neuts Smudge Cells Toxic Granulation Toxic Vacuolation Dohle Bodies Pelger-Huet Anomaly Nicolas Rods Platelet Estimate Clumped Platelets Plt Clumps, EDTA Large Platelets Giant Platelets Platelet Satelliting Plt Morphology Comment RBC Morphology Dimorphic RBCs Polychromasia Hypochromasia Poikilocytosis Anisocytosis Microcytosis Macrocytosis Spherocytes Pappenheimer Bodies Sickle Cells Target Cells Tear Drop Cells Ovalocytes Helmet Cells [place] Bodies [place] Rings Salty Cells Bite Cells Crenated Cell Elliptocytes Acanthocytes (Spur) Rouleaux Hemoglobin C Crystals Schistocytes Malaria parasites ESR (0-20) mm/Hr Lyle Bodies Hem Pathologist Commnt PT (12.2-14.9) Sec. INR (0.87-1.13) D-Dimer (0-234) ng/mlDDU Sodium (137-145) mmol/L Potassium (3.6-5.0) mmol/L Chloride (98-107) mmol/L Carbon Dioxide (22-30) mmol/L Anion Gap mmol/L BUN (9-20) mg/dL Creatinine (0.8-1.3) mg/dL Estimated GFR ml/min BUN/Creatinine Ratio % Glucose (75-100) mg/dL Uric Acid (3.5-7.6) mg/dL Calcium (8.4-10.2) mg/dL Magnesium (1.7-2.3) mg/dL Total Bilirubin (0.1-1.2) mg/dL AST (5-40) units/L ALT (7-56) units/L Alkaline Phosphatase (35-129) units/L Total Creatine Kinase (55-170) units/L Troponin T < 0.010 (0.00-0.029) ng/mL C-Reactive Protein (0.00-1.30) mg/dL Total Protein (6.3-8.2) g/dL Albumin (3.9-5) g/dL Albumin/Globulin Ratio % - EKG Data -: EKG Interpreted by Nv EKG shows normal: sinus rhythm Rate: tachycardia - EKG Data When compared to previous EKG there are: previous EKG unavailable 01/05/21 18:41 EKG interpreted at 14: 24 Sinus rhythm, tachycardia, 121 bpm. Left axis deviation, left anterior fascicular block, left ventricular hypertrophy, QTC is prolonged. This is an abnormal EKG. This is not a STEMI. No prior available for comparison. - Radiology Data Radiology results: pending, report reviewed, image reviewed [facility] [address] [place] [address] XRay Report Signed Patient: NENITA BOWERS MR#: [id number] : 1975 Acct:[id number] Age/Sex: 45 / M ADM Date: 01/05/21 Loc: ED Attending Dr: Ordering Physician: JUAN SALAZAR MD Date of Service: 01/05/21 Procedure(s): XR chest 1V ap Accession Number(s): [id number] cc: JUAN SALAZAR MD Fluoro Time In Minutes: CHEST 1 VIEW INDICATION: weakness, tachycardia COMPARISON: FINDINGS: SUPPORT DEVICES: None. HEART / MEDIASTINUM: No significant abnormality. LUNGS / PLEURA: No significant pulmonary or pleural abnormality. No pneumothorax. ADDITIONAL FINDINGS: IMPRESSION: 1. No acute cardiopulmonary disease Signer Name: Farzad Marquez MD Signed: 01/05/2021 5:44 PM Workstation Name: CAR Transcribed By: ZACH Dictated By: Farzad Marquez MD Electronically Authenticated By: Farzad Marquez MD Signed Date/Time: 01/05/211743 DD/ 43 CT scan of the chest negative for acute findings. Critical care attestation.: If time is entered above; I have spent that time in minutes in the direct care of this critically ill patient, excluding procedure time. ED Disposition Clinical Impression: Visit for wound check, Left wrist pain, Hypomagnesemia, Muscular deconditioning, Abnormal EKG, History of tachycardia Disposition: DC-01 TO HOME OR SELFCARE Is pt being admited?: No Does the pt Need Aspirin: No Condition: Good Instructions: Low-Purine Eating Plan, Electrocardiogram, Arthritis Additional Instructions: Rest, avoid heavy lifting, strenuous physical activities. Do not take metformin medication for the next 2 days, if patient takes this medication. Alternate ice packs and heat packs, take the pain medication as needed and directed, and magnesium supplementation as directed. We recommend follow-up with your primary care doctor within the next week, to follow-up on incidental abnormal laboratory tests which were not emergently abnormal today. We also recommend follow-up with your primary care doctor for repeat checkup and evaluation. Please have your primary care doctor contact medical records department to follow-up and obtain copies of laboratory studies and imaging studies. We recommend follow-up with either your primary care doctor or senior warehouse clerk within the next month for further evaluation and management of presumed gouty arthritis. Avoid consumption of red meat, salt, beer, cheese, and alcohol. Take the pain medication, steroids, colchicine as directed. We recommend follow-up with a cook jelly or primary care doctor within the next week for nonemergent incidental abnormalities noted on patient's EKG. We recommend follow-up with your general surgeon as scheduled within the next month. Please return to the emergency room right away with new pain, worsened pain, migration of pain, projectile vomiting, change in mental status, confusion, inability to tolerate liquid feeds, new, worsened or different symptoms not present on the initial emergency room evaluation. Prescriptions: Magnesium Oxide 400 mg PO QDAY #30 tablet methylPREDNISolone [Medrol 4MG DOSEPAK (21 tabs)] 4 mg PO QDAY #1 tab.ds.pk Ibuprofen [Motrin] 600 mg PO Q8H PRN #30 tablet PRN Reason: Pain Acetaminophen [Non-Aspirin Extra Strength] 500 mg PO Q6HR PRN #30 tablet PRN Reason: Pain , Severe (7-10) Referrals: DEBBY MARTÍNEZ DO [Staff Physician] - 3-5 Days CECI ALAS MD [Staff Physician] - 3-5 Days [facility] [Provider Group] - 3-5 Days Forms: Work/School Release Form(ED) Heart Score - HEART Score History: Slightly suspicious EKG: Non-specific Age: 45-65 Risk factors: 1-2 risk factors Troponin: < normal limit HEART Score: 3 - EKG Read Time Time EKG Completed: 14:18 EKG Read Time: 14:24 - Critical Actions Critical Actions: 0-3 pts:0.9-1.7%risk of adverse cardiac event.Candidate for discharge (Symptoms present for over 24 hours. As per the [employer] clinical policy, myocardial infarction may be ruled out with 1 set of cardiac enzymes if symptoms present for greater than 8 hours.)
[2021-01-05 17:14] LABS: Alanine Aminotransferase 23 units/L (7-56); Albumin 3.5 g/dL (3.9-5); BUN/Creatinine Ratio 8; Blood Urea Nitrogen 9 mg/dL (9-20); Calcium 9.4 mg/dL (8.4-10.2); Hemolysis Index 0
[2021-01-05 17:48] LABS: INR 1.16 (0.87-1.13)
--- NOTE | 2021-01-05 17:49 | XRay Report ---
CHEST 1 VIEW INDICATION: weakness, tachycardia COMPARISON: FINDINGS: SUPPORT DEVICES: None. HEART / MEDIASTINUM: No significant abnormality. LUNGS / PLEURA: No significant pulmonary or pleural abnormality. No pneumothorax. ADDITIONAL FINDINGS: IMPRESSION: 1. No acute cardiopulmonary disease Signer Name: Farzad Marquez MD Signed: 01/05/2021 5:44 PM Workstation Name: [id number]
[2021-01-05] MEDS ORDERED: KETOROLAC 30 MG/1 ML INJ IV ONE (17:55)
[2021-01-05] MEDS ORDERED: MAGNESIUM OXIDE 400 MG TAB PO STA (17:55)
[2021-01-05 18:13] LABS: Erythrocyte Sedimentation Rate 120 mm/Hr (0-20)
[2021-01-05 18:18] LABS: Anisocytosis RARE; Spherocytes 1+; Total Cells Counted 100
[2021-01-05] MEDS ORDERED: predniSONE 20 MG TAB PO ONE (18:57)
--- NOTE | 2021-01-05 20:07 | Cat Scan Report ---
CTA CHEST WITH CONTRAST INDICATION / CLINICAL INFORMATION: tachycardia weakness elevated d dimer. TECHNIQUE: Axial CT images were obtained through the chest after injection of IV contrast. 3 plane DE P and/or 3D reconstructions were produced. All CT scans at this location are performed using CT dose reduction for ALARA by means of automated exposure control. COMPARISON: None available. FINDINGS: The pulmonary arteries are patent without filling defect or evidence for PTE. No focal consolidation, pleural effusion or pneumothorax. There is enlarged nodes in the axilla bilaterally largest on the l eft measuring 2.1 cm. Visualized portions of the upper abdomen appear normal. No acute bone findings are seen. IMPRESSION: 1. No CT evidence for pulmonary embolism. 2. Enlarged nodes in the axilla bilaterally largest node left axilla measures 2.1 cm. Follow-up or ad enopathy recommended. Signer Name: Buddy Ibrahim MD Signed: 01/05/2021 8:02 PM Workstation Name: [id number]; to (do)-[id number]
[2021-01-05 21:28] VITALS: BP 122/83
--- NOTE | 2021-01-08 09:29 | Electrocardiograph Report ---
[facility] Test Date: 2021-01-05 Test Time: 14:18:40 Pat Name: NENITA BOWERS Department: Room: Gender: M Meat Stuffer: JORJE : 1975 Requested By: JUAN SALAZAR Order Number: [id number] Reading MD: Shaka Garces Measurements Intervals [place] Rate: 121 P: 16 HI: 130 QRS: -6 QRSD: 96 T: 18 QT: 314 QTc: 446 Interpretive Statements Sinus tachycardia No previous ECG available for comparison Electronically Signed On 01-08-2021 9:29:19 EDT by Shaka Garces
== END 2021-01-05 21:29 | disposition home or self-care (01) ==
LOC: ED 13:17
DX: M25.532 Pain in left wrist (principal); E83.42 Hypomagnesemia; R00.0 Tachycardia, unspecified; R94.31 Abnormal electrocardiogram [ECG] [EKG]; M62.81 Muscle weakness (generalized); Z48.00 Encounter for change or removal of nonsurgical wound dressing; J45.909 Unspecified asthma, uncomplicated; Z79.1 Long term (current) use of non-steroidal anti-inflammatories (NSAID); Z79.899 Other long term (current) drug therapy
CPT/HCPCS: 36415; 71045; 71275; 80053; 82550; 83735; 84484; 84550; 85007; 85025; 85379; 85610; 85652; 86140; 93005; 96361; 96374; 96375; 99284; J1170; J1885; J7120; J7512; Q9967

== ENCOUNTER 2021-01-12 09:48 | Outpatient (CLI) | payer MEDICARE ==
[2021-01-12] MEDS ORDERED: LIDOCAINE (4%) 40 MG/ML TOPICAL SOLN 50 ML BOTTLE TP ONE ×2 (10:21→13:00)
[2021-01-12] MEDS ORDERED: SILVER NITRATE APPLICATOR 1 EA TP ONE (10:22)
== END 2021-01-12 09:49 | disposition home or self-care (01) ==
LOC: WOUND 09:48
PROVIDERS: ATTEND Surgery
DX: S30.860D Insect bite (nonvenomous) of lower back and pelvis, subsequent encounter (principal); M10.9 Gout, unspecified; L02.31 Cutaneous abscess of buttock; W57.XXXD Bitten or stung by nonvenomous insect and other nonvenomous arthropods, subsequent encounter
CPT/HCPCS: 17250

== ENCOUNTER 2021-01-26 09:52 | Outpatient (CLI) | payer MEDICARE ==
[2021-01-26] MEDS ORDERED: LIDOCAINE (4%) 40 MG/ML TOPICAL SOLN 50 ML BOTTLE TP ONE (10:00)
== END 2021-01-26 09:53 | disposition home or self-care (01) ==
LOC: WOUND 09:52
PROVIDERS: ATTEND Surgery
DX: S30.860D Insect bite (nonvenomous) of lower back and pelvis, subsequent encounter (principal); M10.9 Gout, unspecified; L02.31 Cutaneous abscess of buttock; W57.XXXD Bitten or stung by nonvenomous insect and other nonvenomous arthropods, subsequent encounter
CPT/HCPCS: 99213; G0463

== ENCOUNTER 2021-12-30 09:05 | Outpatient (CLI) | payer MEDICARE ==
--- NOTE | 2021-12-30 10:06 | XRay Report ---
RIGHT TIBIA-FIBULA 4 VIEW(S) INDICATION / CLINICAL INFORMATION: S82.201A UNSPECIFIED FRACTURE OF SHAFT OF RIGHT TIBIA COMPARISON: Radiographs dated 10/28/2021 FINDINGS: BONES / JOINT(S): Intramedullary tibial janet with screw fixation is in stable position without hardwar e fracture. There is interval external and internal callus formation of the comminuted right tibial f racture consistent with healing. There is also callus formation of the proximal right fibular fractur e consistent with interval healing. There is persistent angulation of the proximal tibia, similar to prior exam. Moderate to severe degenerative changes of the right knee and ankle joints. SOFT TISSUES: No significant abnormality. ADDITIONAL FINDINGS: None. Signer Name: Bakari Higgins MD Signed: 12/30/2021 10:01 AM Workstation Name: [email or web address]
== END 2021-12-30 09:06 | disposition home or self-care (01) ==
LOC: XRAY 09:05
PROVIDERS: ATTEND Orthopaedic Surgery
DX: S82.201A Unspecified fracture of shaft of right tibia, initial encounter for closed fracture (principal); M17.11 Unilateral primary osteoarthritis, right knee; M19.071 Primary osteoarthritis, right ankle and foot; X58.XXXA Exposure to other specified factors, initial encounter; Y93.89 Activity, other specified; Y92.89 Other specified places as the place of occurrence of the external cause; Y99.8 Other external cause status

== ENCOUNTER 2022-02-07 10:43 | Emergency (ER) | payer MEDICARE ==
[2022-02-07] MEDS ORDERED: oxyCODONE /ACETAMINOPHEN 5-325MG TAB PO ONE (22:29)
[2022-02-07] MEDS ORDERED: predniSONE 50 MG TAB PO ONE (22:29)
--- NOTE | 2022-02-07 23:11 | Emergency Department Report ---
ED General Adult HPI - General Chief complaint: Extremity Injury, Lower Stated complaint: GOUT PAIN Time Seen by Provider: 02/07/22 21:55 Source: patient, EMS Mode of arrival: Stretcher Limitations: No Limitations - History of Present Illness Initial comments: 46-year-old male with a history of gouty arthritis into my department complaining of a gout flareup involving his left ankle and now moved up to his knee. Pain is dull throbbing and worse with palpation and range of motion as well as is ambulating. No no direct trauma. No fever, chills, sweats. No foreign travel, no nausea, no vomiting. -: Gradual Radiation: non-radiation Severity scale (0 -10): 10 - Related Data Home Medications Medication Instructions Recorded Confirmed Last Taken amLODIPine 5 mg PO DAILY 10/28/21 10/28/21 Unknown Previous Rx's Medication Instructions Recorded Last Taken Type allopurinoL [Zyloprim] 300 mg PO QDAY tablet 12/15/20 Unknown Rx Ibuprofen [Motrin 800 MG tab] 800 mg PO Q8HR PRN #30 tablet 01/05/21 Unknown Rx Apixaban [Eliquis] 2.5 mg PO BID #60 10/29/21 Unknown Rx Ferrous Sulfate [Feosol 325 MG tab] 325 mg PO BID #60 tablet 10/29/21 Unknown Rx oxyCODONE /ACETAMINOPHEN [Percocet 1 tab PO TID PRN #30 10/29/21 Unknown Rx 5/325 mg] Acetaminophen/Codeine [Tylenol #3] 1 tab PO Q6H PRN #15 tab 02/07/22 Unknown Rx Colchicine [Colcrys] 0.6 mg PO Q2H #20 tablet 02/07/22 Unknown Rx Indomethacin [Indocin] 25 mg PO Q8H #20 cap 02/07/22 Unknown Rx Allergies Allergy/AdvReac Type Severity Reaction Status Date / Time No Known Allergies Allergy Verified 02/07/22 10:54 ED Review of Systems ROS: Stated complaint: GOUT PAIN Other details as noted in HPI Comment: All other systems reviewed and negative ED Past Medical Hx - Past Medical History Hx Hypertension: No Hx Heart Attack/AMI: No Hx Congestive Heart Failure: No Hx Diabetes: No Hx Liver Disease: No Hx Renal Disease: No Hx Seizures: No Hx Asthma: Yes ( CHILD ONLY) Hx COPD: No Additional medical history: gout - Social History Smoking Status: Never Smoker - Medications Home Medications: Home Medications Medication Instructions Recorded Confirmed Last Taken Type allopurinoL [Zyloprim] 300 mg PO QDAY tablet 12/15/20 10/28/21 Unknown Rx Ibuprofen [Motrin 800 MG tab] 800 mg PO Q8HR PRN #30 tablet 01/05/21 10/28/21 Unknown Rx amLODIPine 5 mg PO DAILY 10/28/21 10/28/21 Unknown History Apixaban [Eliquis] 2.5 mg PO BID #60 10/29/21 Unknown Rx Ferrous Sulfate [Feosol 325 MG tab] 325 mg PO BID #60 tablet 10/29/21 Unknown Rx oxyCODONE /ACETAMINOPHEN [Percocet 1 tab PO TID PRN #30 10/29/21 Unknown Rx 5/325 mg] Acetaminophen/Codeine [Tylenol #3] 1 tab PO Q6H PRN #15 tab 02/07/22 Unknown Rx Colchicine [Colcrys] 0.6 mg PO Q2H #20 tablet 02/07/22 Unknown Rx Indomethacin [Indocin] 25 mg PO Q8H #20 cap 02/07/22 Unknown Rx ED Physical Exam - General Limitations: No Limitations General appearance: alert, in no apparent distress - Head Head exam: Present: atraumatic, normocephalic - Eye Eye exam: Present: normal appearance, PERRL Pupils: Present: normal accommodation - ENT ENT exam: Present: normal exam, mucous membranes moist, TM's normal bilaterally - Neck Neck exam: Present: normal inspection, full ROM - Respiratory Respiratory exam: Present: normal lung sounds bilaterally. Absent: respiratory distress, wheezes, rales, accessory muscle use, decreased breath sounds - Cardiovascular Cardiovascular Exam: Present: regular rate, normal rhythm. Absent: systolic murmur, diastolic murmur, rubs, gallop - GI/Abdominal GI/Abdominal exam: Present: soft, normal bowel sounds - Rectal Rectal exam: Present: deferred - Extremities Exam Extremities exam: Present: normal inspection, tenderness, normal capillary refill, joint swelling. Absent: calf tenderness - Back Exam Back exam: Present: normal inspection. Absent: CVA tenderness (R), CVA tenderness (L) - Neurological Exam Neurological exam: Present: alert, oriented X3 - Psychiatric Psychiatric exam: Present: normal affect, normal mood - Skin Skin exam: Present: warm, dry, intact, normal color. Absent: rash ED Course Vital Signs 02/07/22 02/07/22 10:51 22:34 Temperature 98.5 F Pulse Rate 76 Respiratory 16 20 Rate Blood Pressure 136/88 [Left] O2 Sat by Pulse 100 Oximetry Critical care attestation.: If time is entered above; I have spent that time in minutes in the direct care of this critically ill patient, excluding procedure time. ED Disposition Clinical Impression: Gout flare Disposition: HOME / SELF CARE / HOMELESS Is pt being admited?: No Does the pt Need Aspirin: No Condition: Stable Instructions: Low-Purine Eating Plan Prescriptions: Colchicine [Colcrys] 0.6 mg PO Q2H #20 tablet Indomethacin [Indocin] 25 mg PO Q8H #20 cap Acetaminophen/Codeine [Tylenol #3] 1 tab PO Q6H PRN #15 tab PRN Reason: Pain Referrals: PALOMO JEFFREY MD [Staff Physician] - 3-5 Days
[2022-02-08 00:40] VITALS: BP 140/98
== END 2022-02-08 00:40 | disposition home or self-care (01) ==
LOC: ED 10:43
DX: M10.9 Gout, unspecified (principal)
CPT/HCPCS: 99283; J7512

== ENCOUNTER 2022-03-08 10:35 | Emergency (ER) | payer MEDICARE ==
--- NOTE | 2022-03-08 11:43 | Event Note ---
ED Screening Note ED Screening Note: Patient comes to the emergency room via EMS complaining of left arm numbness, shortness of breath and bilateral side pain. This all reportedly started acutely during the night. Patient does endorse a history of gout and has gout in his wrist. However, he states this is not why he called EMS. Patient reports yesterday was urinating fine and drinking. In his normal state of health he is able to walk. However, today he felt so weak that he needed to call EMS This initial assessment/diagnostic orders/clinical plan/treatment(s) is/are subject to change based on patients health status, clinical progression and re- assessment by fellow clinical providers in the ED. Further treatment and workup at subsequent clinical providers discretion. Patient/guardian urged not to elope from the ED as their condition may be serious if not clinically assessed and managed. Initial orders include: labs
[2022-03-08] MEDS ORDERED: HYDROmorphone 1 MG/1 ML INJ IV ONE (12:08)
[2022-03-08] MEDS ORDERED: ONDANSETRON 4 MG/2 ML INJ IV ONE (12:08)
[2022-03-08] MEDS ORDERED: SODIUM CHLORIDE 0.9% 1000 ML 1,000 ML IV ONE (12:08)
[2022-03-08] MEDS ORDERED: KETOROLAC 30 MG/1 ML INJ IV ONE (12:09)
--- NOTE | 2022-03-08 12:34 | XRay Report ---
CHEST 1 VIEW INDICATION / CLINICAL INFORMATION: sob. COMPARISON: 01/05/2021 FINDINGS: SUPPORT DEVICES: None. HEART / MEDIASTINUM: No significant abnormality. LUNGS / PLEURA: No significant pulmonary or pleural abnormality. No pneumothorax. ADDITIONAL FINDINGS: No significant additional findings. IMPRESSION: 1. No acute findings. Signer Name: Yung London MD Signed: 03/08/2022 12:30 PM Workstation Name: [email or web address]
[2022-03-08 12:52] LABS: Basophils # (Auto) 0.1 K/mm3 (0.0-0.1); Basophils % (Auto) 0.8 % (0.0-1.8); Hematocrit 37.6 % (35.5-45.6); Hemoglobin 12.2 gm/dl (11.8-15.2); Lymphocytes # (Auto) 1.4 K/mm3 (1.2-5.4); Lymphocytes % (Auto) 10.7 % (13.4-35.0); Mean Corpuscular HGB Conc 32 % (32-34); Mean Corpuscular Volume 87 fl (84-94); Monocytes # (Auto) 1.7 K/mm3 (0.0-0.8); Monocytes % (Auto) 13.1 % (0.0-7.3); Platelet Count 350 K/mm3 (140-440); Red Blood Count 4.33 M/mm3 (3.65-5.03); Red Cell Distribution Width 17.5 % (13.2-15.2)
[2022-03-08 13:02] LABS: INR 0.93 (0.87-1.13)
[2022-03-08 13:03] LABS: Partial Thromboplastin Time 29.4 Sec. (24.2-36.6)
--- NOTE | 2022-03-08 13:13 | Emergency Department Report ---
ED General Adult HPI - General Chief complaint: Extremity Injury, Lower Stated complaint: CRAMPS/GOUT FLARE UP Time Seen by Provider: 03/08/22 11:54 Source: patient, EMS Mode of arrival: Stretcher Limitations: No Limitations - History of Present Illness Initial comments: 46-year-old male with a past medical history of "extreme gout", hypertension, and right femur fracture after fall October 2021 presents to the hospital with complaints of pain and shortness of breath. Pain is moderate to severe and worse with movement. Patient also feels more short of breath while lying on his back. symptoms started 4 days with a "crick in his neck. It affected the left and the right side of his neck. Patient did state he developed left shoulder, left elbow pain and numbness and currently has left wrist pain secondary to gout flare. Today patient developed bilateral flank cramping pain that is intermittent and causes him to feel short of breath with episodes. He denies cough, fever, dysuria, urinary frequency, nausea, vomiting, chest pain, or diarrhea. Patient primarily uses a wheelchair due to recovery from femur fracture and is undergoing physical therapy. He is no longer on anticoagulation prophylaxis for DVT. He is taking Percocet 10 mg for pain related to his femur fracture prescribed by orthopedic surgeon Dr. Rice Severity scale (0 -10): 10 - Related Data Home Medications Medication Instructions Recorded Confirmed Last Taken amLODIPine 5 mg PO DAILY 10/28/21 10/28/21 Unknown Previous Rx's Medication Instructions Recorded Last Taken Type allopurinoL [Zyloprim] 300 mg PO QDAY tablet 12/15/20 Unknown Rx Apixaban [Eliquis] 2.5 mg PO BID #60 10/29/21 Unknown Rx Ferrous Sulfate [Feosol 325 MG tab] 325 mg PO BID #60 tablet 10/29/21 Unknown Rx oxyCODONE /ACETAMINOPHEN [Percocet 1 tab PO TID PRN #30 10/29/21 Unknown Rx 5/325 mg] Acetaminophen/Codeine [Tylenol #3] 1 tab PO Q6H PRN #15 tab 02/07/22 Unknown Rx Colchicine [Colcrys] 0.6 mg PO Q2H #20 tablet 02/07/22 Unknown Rx Indomethacin [Indocin] 25 mg PO Q8H #20 cap 02/07/22 Unknown Rx Ibuprofen [Motrin 800 MG tab] 800 mg PO Q8HR PRN #30 tablet 03/08/22 Unknown Rx cefUROXime [Ceftin] 500 mg PO Q12H #14 tab 03/08/22 Unknown Rx Allergies Allergy/AdvReac Type Severity Reaction Status Date / Time No Known Allergies Allergy Verified 02/07/22 10:54 ED Review of Systems ROS: Stated complaint: CRAMPS/GOUT FLARE UP Other details as noted in HPI Comment: All other systems reviewed and negative ED Past Medical Hx - Past Medical History Hx Hypertension: No Hx Heart Attack/AMI: No Hx Congestive Heart Failure: No Hx Diabetes: No Hx Liver Disease: No Hx Renal Disease: No Hx Seizures: No Hx Asthma: Yes ( CHILD ONLY) Hx COPD: No Additional medical history: gout - Social History Smoking Status: Never Smoker - Medications Home Medications: Home Medications Medication Instructions Recorded Confirmed Last Taken Type allopurinoL [Zyloprim] 300 mg PO QDAY tablet 12/15/20 10/28/21 Unknown Rx amLODIPine 5 mg PO DAILY 10/28/21 10/28/21 Unknown History Apixaban [Eliquis] 2.5 mg PO BID #60 10/29/21 Unknown Rx Ferrous Sulfate [Feosol 325 MG tab] 325 mg PO BID #60 tablet 10/29/21 Unknown Rx oxyCODONE /ACETAMINOPHEN [Percocet 1 tab PO TID PRN #30 10/29/21 Unknown Rx 5/325 mg] Acetaminophen/Codeine [Tylenol #3] 1 tab PO Q6H PRN #15 tab 02/07/22 Unknown Rx Colchicine [Colcrys] 0.6 mg PO Q2H #20 tablet 02/07/22 Unknown Rx Indomethacin [Indocin] 25 mg PO Q8H #20 cap 02/07/22 Unknown Rx Ibuprofen [Motrin 800 MG tab] 800 mg PO Q8HR PRN #30 tablet 03/08/22 Unknown Rx cefUROXime [Ceftin] 500 mg PO Q12H #14 tab 03/08/22 Unknown Rx ED Physical Exam - General Limitations: No Limitations - Other Other exam information: General: No acute distress Head: Atraumatic Eyes: normal appearance ENT: Moist mucous membranes Neck: Normal appearance, no midline tenderness Chest: Clear to auscultation bilaterally CV: Regular rate and rhythm Abdomen: Soft, normal bowel sounds, nontender, nondistended, no rebound or guarding Back: Normal inspection Extremity: Left wrist warmth and tenderness to palpation Neuro: Alert O x 3, no facial asymmetry, speech clear, no gross motor sensory deficit Psych: Appropriate behavior Skin: No rash ED Course Vital Signs 03/08/22 03/08/22 12:01 16:33 Temperature 99 F 98.1 F Pulse Rate 111 H 78 Respiratory 18 16 Rate Blood Pressure 135/93 144/106 [Left] O2 Sat by Pulse 100 97 Oximetry ED Medical Decision Making - Lab Data Result diagrams: 03/08/22 12:27 03/08/22 13:55 Lab Results 03/08/22 03/08/22 03/08/22 Range/Units 12:27 12:27 12:27 WBC 12.7 H (4.5-11.0) K/mm3 RBC 4.33 (3.65-5.03) M/mm3 Hgb 12.2 (11.8-15.2) gm/dl Hct 37.6 (35.5-45.6) % MCV 87 (84-94) fl MCH 28 (28-32) pg MCHC 32 (32-34) % RDW 17.5 H (13.2-15.2) % Plt Count 350 (140-440) K/mm3 Lymph % (Auto) 10.7 L (13.4-35.0) % [place] % (Auto) 13.1 H (0.0-7.3) % Eos % (Auto) 0.0 (0.0-4.3) % Baso % (Auto) 0.8 (0.0-1.8) % Lymph # (Auto) 1.4 (1.2-5.4) K/mm3 [place] # (Auto) 1.7 H (0.0-0.8) K/mm3 Eos # (Auto) 0.0 (0.0-0.4) K/mm3 Baso # (Auto) 0.1 (0.0-0.1) K/mm3 Seg Neutrophils % 75.4 H (40.0-70.0) % Seg Neutrophils # 9.6 H (1.8-7.7) K/mm3 PT 13.5 (12.2-14.9) Sec. INR 0.93 (0.87-1.13) APTT 29.4 (24.2-36.6) Sec. Sodium TNR Potassium TNR Chloride TNR Carbon Dioxide TNR Anion Gap TNR BUN TNR Creatinine TNR Estimated GFR TNR BUN/Creatinine Ratio TNR Glucose TNR Calcium TNR Magnesium Total Bilirubin TNR AST TNR ALT TNR Alkaline Phosphatase TNR NT-Pro-B Natriuret Pep (0-450) pg/mL Total Protein TNR Albumin TNR Albumin/Globulin Ratio TNR Urine Color (Yellow) Urine Turbidity (Clear) Urine pH (5.0-7.0) Ur Specific [place] (1.003-1.030) Urine Protein (Negative) mg/dL Urine Glucose (UA) (Negative) mg/dL Urine Ketones (Negative) mg/dL Urine Blood (Negative) Urine Nitrite (Negative) Urine Bilirubin (Negative) Urine Ictotest (Negative) Urine Urobilinogen (<2.0) mg/dL Ur Leukocyte Esterase (Negative) Urine WBC (Auto) (0.0-6.0) /HPF Urine RBC (Auto) (0.0-6.0) /HPF U Epithel Cells (Auto) (0-13.0) /HPF WBC Casts /LPF Urine Mucus /HPF 03/08/22 03/08/22 03/08/22 Range/Units 12:27 12:56 13:55 WBC (4.5-11.0) K/mm3 RBC (3.65-5.03) M/mm3 Hgb (11.8-15.2) gm/dl Hct (35.5-45.6) % MCV (84-94) fl MCH (28-32) pg MCHC (32-34) % RDW (13.2-15.2) % Plt Count (140-440) K/mm3 Lymph % (Auto) (13.4-35.0) % [place] % (Auto) (0.0-7.3) % Eos % (Auto) (0.0-4.3) % Baso % (Auto) (0.0-1.8) % Lymph # (Auto) (1.2-5.4) K/mm3 [place] # (Auto) (0.0-0.8) K/mm3 Eos # (Auto) (0.0-0.4) K/mm3 Baso # (Auto) (0.0-0.1) K/mm3 Seg Neutrophils % (40.0-70.0) % Seg Neutrophils # (1.8-7.7) K/mm3 PT (12.2-14.9) Sec. INR (0.87-1.13) APTT (24.2-36.6) Sec. Sodium 139 Potassium 3.7 Chloride 104.9 Carbon Dioxide 21 L Anion Gap 17 BUN 20 Creatinine 1.6 H Estimated GFR 56 BUN/Creatinine Ratio 13 Glucose 111 H Calcium 8.9 Magnesium TNR 2.00 Total Bilirubin 0.80 AST 33 ALT 59 H Alkaline Phosphatase 256 H NT-Pro-B Natriuret Pep 64.23 (0-450) pg/mL Total Protein 7.8 Albumin 3.3 L Albumin/Globulin Ratio 0.7 Urine Color Jen (Yellow) Urine Turbidity Slightly cloudy (Clear) Urine pH 6.0 (5.0-7.0) Ur Specific [place] 1.020 (1.003-1.030) Urine Protein 30 mg/dl (Negative) mg/dL Urine Glucose (UA) Negative (Negative) mg/dL Urine Ketones Negative (Negative) mg/dL Urine Blood Negative (Negative) Urine Nitrite Negative (Negative) Urine Bilirubin Small (Negative) Urine Ictotest Negative (Negative) Urine Urobilinogen < 2.0 (<2.0) mg/dL Ur Leukocyte Esterase Moderate (Negative) Urine WBC (Auto) 24.0 H (0.0-6.0) /HPF Urine RBC (Auto) 3.0 (0.0-6.0) /HPF U Epithel Cells (Auto) 2.0 (0-13.0) /HPF WBC Casts 2 /LPF Urine Mucus 1+ /HPF - Radiology Data Radiology results: report reviewed The following imaging reports reviewed Chest x-ray CT angiogram chest CT neck CT abdomen pelvis with IV contrast No acute findings noted other than thickening of the bladder - Medical Decision Making 46-year-old male presents to the hospital with several several areas of body pain which in turn causes him to have shortness of breath. Patient had extensive imaging work-up. After labs, imaging, and UA diagnosis is UTI. No signs of pulmonary embolism/pneumonia, surgical abdomen pathology, or neck pathology. Patient treated ED with Dilaudid, Toradol, Zofran, and IV Rocephin initiated for UTI. Patient be discharged on antibiotics to continue current Percocet as prescribed. Motrin will also be prescribed Critical Care Time: No Critical care attestation.: If time is entered above; I have spent that time in minutes in the direct care of this critically ill patient, excluding procedure time. ED Disposition Clinical Impression: Body aches, UTI (urinary tract infection) Disposition: HOME / SELF CARE / HOMELESS Is pt being admited?: No Condition: Stable Instructions: Urinary Tract Infection, Adult, Musculoskeletal Pain Additional Instructions: Take the medication as prescribed including your Percocet as needed for pain. Follow-up with your doctor or doctor/clinic provided. Return if symptoms worsen as indicated by your discharge instructions. Prescriptions: cefUROXime [Ceftin] 500 mg PO Q12H #14 tab Ibuprofen [Motrin 800 MG tab] 800 mg PO Q8HR PRN #30 tablet PRN Reason: Pain , Severe (7-10) Referrals: PRIMARY CARE, [Primary Care Provider] - 3-5 Days CECI ALAS MD [Staff Physician] - 3-5 Days
[2022-03-08 13:23] LABS: Blood Urea Nitrogen TNR mg/dL (9-20)
[2022-03-08 13:24] LABS: Alanine Aminotransferase TNR units/L (7-56); Albumin TNR g/dL (3.9-5); BUN/Creatinine Ratio TNR; Calcium TNR mg/dL (8.4-10.2)
[2022-03-08 13:25] LABS: Hemolysis Index TNR
[2022-03-08 14:09] LABS: Color,Urine Amber (Yellow)
[2022-03-08 14:13] LABS: Bilirubin,Urine Small (Negative); Blood,Urine Negative (Negative); Urobilinogen,Urine < 2.0 mg/dL (<2.0)
[2022-03-08 14:44] LABS: Mucus,Urine 1+ /HPF; White Blood Cell Casts,Urine 2 /LPF
[2022-03-08 14:49] LABS: Ictotest,Urine Negative (Negative)
[2022-03-08 14:53] LABS: Albumin 3.3 g/dL (3.9-5); Calcium 8.9 mg/dL (8.4-10.2)
--- NOTE | 2022-03-08 15:07 | Cat Scan Report ---
CT CERVICAL SPINE WITHOUT CONTRAST INDICATION / CLINICAL INFORMATION: PAIN - INJURY. TECHNIQUE: Axial CT images were obtained through the cervical spine. Sagittal and coronal reformatted images were produced. All CT scans at this location are performed using CT dose reduction for ALARA by means of automated exposure control. COMPARISON: None available. FINDINGS: Alignment: Cervical spinal alignment is preserved. No acute subluxation. Geographic Bone Lesion: None present. Fracture: No evidence of acute fracture. There is chronic degenerative vertebral body height loss at C5 with superior endplate Schmorl's node. Degenerative Changes: Mild multilevel cervical spondylosis. No significant central canal narrowing. Epidural Hematoma: Not present. Prevertebral / Paraspinal Soft Tissues: Unremarkable. Other: Incidentally noted accessory left cervical rib. IMPRESSION: No acute osseous findings of the cervical spine. Signer Name: Vikas Gómez MD Signed: 03/08/2022 3:02 PM Workstation Name: [email or web address]
--- NOTE | 2022-03-08 15:08 | Cat Scan Report ---
CTA CHEST WITH CONTRAST INDICATION / CLINICAL INFORMATION: Shortness of breath. TECHNIQUE: Axial CT images were obtained through the chest after injection of 100 mL Omnipaque 350 IV contrast. 3 plane MIP and/or 3D reconstructions were produced. All CT scans at this location are per formed using CT dose reduction for ALARA by means of automated exposure control. COMPARISON: None available. FINDINGS: PULMONARY EMBOLUS: None. THORACIC AORTA: No significant abnormality. HEART: No significant abnormality. CORONARY ARTERY CALCIFICATION: Absent -- None. MEDIASTINUM / ERNIE: No significant abnormality. PLEURA: No pleural effusion. No pneumothorax. LUNGS: No acute air space or interstitial disease. ADDITIONAL FINDINGS: None. UPPER ABDOMEN: No acute findings. SKELETAL STRUCTURES: No significant osseous abnormality. IMPRESSION: 1. No CT evidence for pulmonary embolism. 2. No acute findings. Signer Name: Cory Morillo MD Signed: 03/08/2022 3:04 PM Workstation Name: [id number]
--- NOTE | 2022-03-08 15:10 | Cat Scan Report ---
CT ABDOMEN AND PELVIS WITH CONTRAST HISTORY: abdominal cramps COMPARISON: None TECHNIQUE: Routine abdominal and pelvic CT exam performed following intravenous contrast administrat ion.. All CT scans at this location are performed using CT dose reduction for ALARA by means of autom ated exposure control. FINDINGS: CT ABDOMEN: Lung Bases: No significant abnormality. Liver: No significant abnormality. Biliary: No significant abnormality. Spleen: No significant abnormality. Unenlarged. Pancreas: No significant abnormality. Adrenals: No significant abnormality. Kidneys: No significant abnormality. Lymphatics: No lymphadenopathy. Vasculature: No significant abnormality. Bowel/Peritoneum: No significant abnormality. No free air. No free fluid. Normal appendix. CT PELVIC: : There is diffuse bladder wall thickening. Lymphatics: No lymphadenopathy. Osseous Structures: No aggressive appearing osseous lesions. Additional Findings: None IMPRESSION: 1. No acute findings. 2. Diffuse bladder wall thickening that could be related to cystitis and/or chronic bladder outlet ob struction. Signer Name: Cory Morillo MD Signed: 03/08/2022 3:06 PM Workstation Name: [email or web address]
[2022-03-08] MEDS ORDERED: cefTRIAXone/NS 1 GM/50 ML 1 GM/50 ML BAG IV ONE (15:34)
[2022-03-08 16:34] VITALS: BP 144/106
== END 2022-03-08 18:08 | disposition home or self-care (01) ==
LOC: ED 10:35
DX: M79.10 Myalgia, unspecified site (principal); N39.0 Urinary tract infection, site not specified; J45.909 Unspecified asthma, uncomplicated
CPT/HCPCS: 36415; 71045; 71275; 72125; 74177; 80053; 81001; 83735; 83880; 85025; 85610; 85730; 87086; 96361; 96365; 96375; 99285; J0696; J1170; J1885; J2405; J7030; Q9967

== ENCOUNTER 2022-04-16 09:12 | Outpatient (CLI) | payer MEDICARE ==
--- NOTE | 2022-04-16 13:14 | XRay Report ---
RIGHT TIBIA-FIBULA 2 VIEW(S) INDICATION / CLINICAL INFORMATION: RIGHT LEG PAIN. COMPARISON: 12/30/2021 radiographs FINDINGS: BONES / JOINT(S): Expected appropriate healing of the proximal tibial and proximal fibular fractures with increased near complete callus formation. No worsening displacement. Stable satisfactory positio n of the tibial intramedullary janet and screw internal fixation hardware. No other acute fracture or d islocation. SOFT TISSUES: No significant abnormality. ADDITIONAL FINDINGS: None. IMPRESSION: 1. No acute findings. 2. Expected appropriate interval healing of the chronic proximal tibial and fibular fractures, as det abad above. Signer Name: Praneeth Ryan MD Signed: 04/16/2022 1:09 PM Workstation Name: [email or web address]
== END 2022-04-16 09:13 | disposition home or self-care (01) ==
LOC: XRAY 09:12
PROVIDERS: ATTEND Orthopaedic Surgery
DX: S82.101D Unspecified fracture of upper end of right tibia, subsequent encounter for closed fracture with routine healing (principal); X58.XXXD Exposure to other specified factors, subsequent encounter

== ENCOUNTER 2022-04-28 10:43 | Emergency (ER) | payer MEDICARE ==
[2022-04-28] MEDS ORDERED: oxyCODONE /ACETAMINOPHEN 5-325MG TAB PO ONE (11:42)
[2022-04-28] MEDS ORDERED: predniSONE 20 MG TAB PO ONE (11:42)
[2022-04-28] MEDS ORDERED: COLCHICINE 0.6 MG TAB PO ONE (11:45)
--- NOTE | 2022-04-28 11:47 | Emergency Department Report ---
ED General Adult HPI - General Chief complaint: Pain General Stated complaint: SHOULDER/LT KNEE PAIN Time Seen by Provider: 04/28/22 11:41 Source: patient, EMS Mode of arrival: Stretcher Limitations: No Limitations - History of Present Illness Initial comments: 46-year-old male past medical history hypertension and gout reports to the ER bilateral shoulder pain and left knee pain. Patient reports he is having a gout flareup. Patient denies any acute injuries to his shoulders or left knee. Patient reports no other acute symptoms at this time. - Related Data Home Medications Medication Instructions Recorded Confirmed Last Taken amLODIPine 5 mg PO DAILY 10/28/21 10/28/21 Unknown Previous Rx's Medication Instructions Recorded Last Taken Type allopurinoL [Zyloprim] 300 mg PO QDAY tablet 12/15/20 Unknown Rx Apixaban [Eliquis] 2.5 mg PO BID #60 10/29/21 Unknown Rx Ferrous Sulfate [Feosol 325 MG tab] 325 mg PO BID #60 tablet 10/29/21 Unknown Rx oxyCODONE /ACETAMINOPHEN [Percocet 1 tab PO TID PRN #30 10/29/21 Unknown Rx 5/325 mg] Acetaminophen/Codeine [Tylenol #3] 1 tab PO Q6H PRN #15 tab 02/07/22 Unknown Rx Colchicine [Colcrys] 0.6 mg PO Q2H #20 tablet 02/07/22 Unknown Rx Indomethacin [Indocin] 25 mg PO Q8H #20 cap 02/07/22 Unknown Rx Ibuprofen [Motrin 800 MG tab] 800 mg PO Q8HR PRN #30 tablet 03/08/22 Unknown Rx cefUROXime [Ceftin] 500 mg PO Q12H #14 tab 03/08/22 Unknown Rx Acetaminophen/Codeine [Tylenol 1 tab PO Q6H PRN 2 Days #8 tab 04/28/22 Unknown Rx /Codeine # 3 tab] predniSONE [Deltasone] 20 mg PO QDAY 5 Days #5 tab 04/28/22 Unknown Rx Allergies Allergy/AdvReac Type Severity Reaction Status Date / Time No Known Allergies Allergy Verified 02/07/22 10:54 ED Review of Systems ROS: Stated complaint: SHOULDER/LT KNEE PAIN Other details as noted in HPI Comment: All other systems reviewed and negative Musculoskeletal: joint swelling, arthralgia, myalgia ED Past Medical Hx - Past Medical History Previous Medical History?: Yes Hx Hypertension: Yes Hx Heart Attack/AMI: No Hx Congestive Heart Failure: No Hx Diabetes: No Hx Liver Disease: No Hx Renal Disease: No Hx Seizures: No Hx Asthma: Yes ( CHILD ONLY) Hx COPD: No Additional medical history: gout - Social History Smoking Status: Never Smoker - Medications Home Medications: Home Medications Medication Instructions Recorded Confirmed Last Taken Type allopurinoL [Zyloprim] 300 mg PO QDAY tablet 12/15/20 10/28/21 Unknown Rx amLODIPine 5 mg PO DAILY 10/28/21 10/28/21 Unknown History Apixaban [Eliquis] 2.5 mg PO BID #60 10/29/21 Unknown Rx Ferrous Sulfate [Feosol 325 MG tab] 325 mg PO BID #60 tablet 10/29/21 Unknown Rx oxyCODONE /ACETAMINOPHEN [Percocet 1 tab PO TID PRN #30 10/29/21 Unknown Rx 5/325 mg] Acetaminophen/Codeine [Tylenol #3] 1 tab PO Q6H PRN #15 tab 02/07/22 Unknown Rx Colchicine [Colcrys] 0.6 mg PO Q2H #20 tablet 02/07/22 Unknown Rx Indomethacin [Indocin] 25 mg PO Q8H #20 cap 02/07/22 Unknown Rx Ibuprofen [Motrin 800 MG tab] 800 mg PO Q8HR PRN #30 tablet 03/08/22 Unknown Rx cefUROXime [Ceftin] 500 mg PO Q12H #14 tab 03/08/22 Unknown Rx Acetaminophen/Codeine [Tylenol 1 tab PO Q6H PRN 2 Days #8 tab 04/28/22 Unknown Rx /Codeine # 3 tab] predniSONE [Deltasone] 20 mg PO QDAY 5 Days #5 tab 04/28/22 Unknown Rx ED Physical Exam - General Limitations: No Limitations General appearance: alert, in no apparent distress - Head Head exam: Present: atraumatic, normocephalic - Eye Eye exam: Present: normal appearance - ENT ENT exam: Present: mucous membranes moist - Neck Neck exam: Present: normal inspection - Respiratory Respiratory exam: Present: normal lung sounds bilaterally. Absent: respiratory distress - Cardiovascular Cardiovascular Exam: Present: regular rate, normal rhythm. Absent: systolic murmur, diastolic murmur, rubs, gallop - GI/Abdominal GI/Abdominal exam: Present: soft, normal bowel sounds - Rectal Rectal exam: Present: deferred - Extremities Exam Extremities exam: Present: normal inspection - Expanded Upper Extremity Exam Left Shoulder Exam: Present: tenderness. Absent: full ROM (Limited range of motion due to pain) Right Shoulder Exam: Present: tenderness. Absent: full ROM (Limited range of motion due to pain) - Expanded Lower Extremity Exam Left Knee exam: Present: tenderness, swelling. Absent: full ROM (Limited range of motion due to pain) - Back Exam Back exam: Present: normal inspection - Neurological Exam Neurological exam: Present: alert, oriented X3 - Psychiatric Psychiatric exam: Present: normal affect, normal mood - Skin Skin exam: Present: warm, dry, intact, normal color. Absent: rash ED Course Vital Signs 04/28/22 04/28/22 04/28/22 10:45 12:07 14:35 Temperature 98.2 F 97.6 F Pulse Rate 116 H 72 Respiratory 18 14 16 Rate Blood Pressure 130/92 132/64 [Left] O2 Sat by Pulse 98 100 Oximetry - Reevaluation(s) Reevaluation #1: 04/28/22 13:39 On reassessment patient reports feeling better. Patient reports a decrease in pain. Patient reports increase in movement of his shoulders and left knee. Patient reported pain score 4 out of 10. Patient in no acute distress patient is stable for discharge. ED Medical Decision Making - Medical Decision Making 46-year-old male with past medical history of gout and hypertension reports to the ER bilateral shoulder pain and left knee pain. Patient reports he is having a gout attack. Patient denies any injury to his shoulders or left knee. On physical exam patient does have slight swelling to the left knee with tenderness and limited range of motion due to pain. No swelling noted in bilateral shoulders, limited range of motion due to pain. Patient received oral medication for pain control and gout flare. On reassessment patient reports decrease in pain. Patient is currently calling his pharmacy and his primary care provider to see if his hypertension medications have been called in as well as his gout medication allopurinol. Patient unsure of his hypertension medication name as well as his allopurinol dosage. As patient saw his provider earlier this week for for follow-up and medication refill. . Patient will be started on steroids for gout flare. And pain medicine for pain. Patient agrees with plan of care and verbalized understanding. Patient stable for discharge home. Vital Signs 04/28/22 04/28/22 10:45 12:07 Temperature 98.2 F Pulse Rate 116 H Respiratory 18 14 Rate Blood Pressure 130/92 [Left] O2 Sat by Pulse 98 Oximetry Vital Signs 04/28/22 04/28/22 04/28/22 10:45 12:07 14:35 Temperature 98.2 F 97.6 F Pulse Rate 116 H 72 Respiratory 18 14 16 Rate Blood Pressure 130/92 132/64 [Left] O2 Sat by Pulse 98 100 Oximetry Critical care attestation.: If time is entered above; I have spent that time in minutes in the direct care of this critically ill patient, excluding procedure time. ED Disposition Clinical Impression: Knee pain Qualifiers: Chronicity: acute Laterality: left Qualified Code(s): M25.562 - Pain in left knee Bilateral shoulder pain Qualifiers: Chronicity: acute Qualified Code(s): M25.511 - Pain in right shoulder Gout flare Qualifiers: Gout site: knee Gout etiology: unspecified cause Laterality: left Qualified Code(s): M10.9 - Gout, unspecified Disposition: 01 HOME / SELF CARE / HOMELESS Is pt being admited?: No Condition: Stable Instructions: Acute Knee Pain, Adult, Shoulder Pain Prescriptions: predniSONE [Deltasone] 20 mg PO QDAY 5 Days #5 tab Acetaminophen/Codeine [Tylenol /Codeine # 3 tab] 1 tab PO Q6H PRN 2 Days #8 tab PRN Reason: Pain , Severe (7-10) Referrals: NAGA BARROS MD [Primary Care Provider] - 3-5 Days
[2022-04-28 14:37] VITALS: BP 132/64
== END 2022-04-28 14:35 | disposition home or self-care (01) ==
LOC: ED 10:43
DX: M10.9 Gout, unspecified (principal); M25.511 Pain in right shoulder; M25.512 Pain in left shoulder; M25.562 Pain in left knee; I10 Essential (primary) hypertension; J45.909 Unspecified asthma, uncomplicated; Z79.01 Long term (current) use of anticoagulants; Z79.899 Other long term (current) drug therapy
CPT/HCPCS: 99283

== ENCOUNTER 2022-05-15 09:15 | Emergency (ER) | payer MEDICARE ==
[2022-05-15] MEDS ORDERED: COLCHICINE 0.6 MG TAB PO ONE (09:57)
[2022-05-15] MEDS ORDERED: ONDANSETRON 4 MG/2 ML INJ IM ONE (09:57)
[2022-05-15] MEDS ORDERED: KETOROLAC 60 MG/2 ML INJ IM ONE (09:57)
[2022-05-15] MEDS ORDERED: fentaNYL 100 MCG/2 ML INJ IM ONE (09:57)
--- NOTE | 2022-05-15 10:05 | Emergency Department Report ---
HPI - General Chief Complaint: Extremity Injury, Upper Time Seen by Provider: 05/15/22 09:48 - HPI HPI: Room 18 The patient is a 46-year-old male present with chief complaint of gout pain. Patient states since yesterday he has had pain in both shoulders and his right wrist consistent with his gout flare. Patient denies preceding trauma. Patient gives his pain a score of 10/10. Patient states he has been compliant with his allopurinol ED Past Medical Hx - Past Medical History Hx Hypertension: Yes Hx Arthritis: Yes (Gout) Hx Asthma: Yes ( CHILD ONLY) - Surgical History Additional Surgical History: Right lower extremity fracture repair - Family History Family history: no significant - Social History Smoking Status: Never Smoker Substance Use Type: None (Denies illicit drug use), Alcohol (Occasional) - Medications Home Medications: Home Medications Medication Instructions Recorded Confirmed Last Taken Type allopurinoL [Zyloprim] 300 mg PO QDAY tablet 12/15/20 10/28/21 Unknown Rx amLODIPine 5 mg PO DAILY 10/28/21 10/28/21 Unknown History Apixaban [Eliquis] 2.5 mg PO BID #60 10/29/21 Unknown Rx Ferrous Sulfate [Feosol 325 MG tab] 325 mg PO BID #60 tablet 10/29/21 Unknown Rx oxyCODONE /ACETAMINOPHEN [Percocet 1 tab PO TID PRN #30 10/29/21 Unknown Rx 5/325 mg] Acetaminophen/Codeine [Tylenol #3] 1 tab PO Q6H PRN #15 tab 02/07/22 Unknown Rx Colchicine [Colcrys] 0.6 mg PO Q2H #20 tablet 02/07/22 Unknown Rx Indomethacin [Indocin] 25 mg PO Q8H #20 cap 02/07/22 Unknown Rx Ibuprofen [Motrin 800 MG tab] 800 mg PO Q8HR PRN #30 tablet 03/08/22 Unknown Rx cefUROXime [Ceftin] 500 mg PO Q12H #14 tab 03/08/22 Unknown Rx Acetaminophen/Codeine [Tylenol 1 tab PO Q6H PRN 2 Days #8 tab 04/28/22 Unknown Rx /Codeine # 3 tab] predniSONE [Deltasone] 20 mg PO QDAY 5 Days #5 tab 04/28/22 Unknown Rx Colchicine [Colcrys] 0.6 mg PO DAILY #30 tablet 05/15/22 Unknown Rx HYDROcodone/APAP 5-325 [[place] 1 - 2 each PO Q6HR PRN #14 tablet 05/15/22 Unknown Rx 5/325] Ibuprofen [Motrin 800 MG tab] 800 mg PO Q8HR PRN #20 tablet 05/15/22 Unknown Rx ED Review of Systems ROS: Stated complaint: GOUT/SHOULDERS Other details as noted in HPI Constitutional: no symptoms reported Eyes: denies: eye pain ENT: denies: throat pain Respiratory: no symptoms reported Cardiovascular: denies: chest pain Endocrine: no symptoms reported Gastrointestinal: denies: abdominal pain Genitourinary: denies: dysuria Musculoskeletal: arthralgia Neurological: denies: headache Physical Exam - Physical Exam Vital Signs: Vital Signs 05/15/22 09:15 Temperature 98.6 F Pulse Rate 100 H Respiratory 18 Rate Blood Pressure 168/90 [Left] O2 Sat by Pulse 99 Oximetry Physical Exam: GENERAL: The patient is well-developed well-nourished male lying on stretcher not appearing to be in acute distress. [] HEENT: Normocephalic. Atraumatic. Extraocular motions are intact. Patient has moist mucous membranes. NECK: Supple. Trachea midline CHEST/LUNGS: Clear to auscultation. There is no respiratory distress noted. HEART/CARDIOVASCULAR: Regular. There is no tachycardia. There is no gallop rub or murmur. ABDOMEN: Abdomen is soft, nontender. Patient has normal bowel sounds. There is no abdominal distention. SKIN: There is no rash. There is no diaphoresis. NEURO: The patient is awake, alert, and oriented. The patient is cooperative. The patient has no focal neurologic deficits. The patient has normal speech. GCS 15 MUSCULOSKELETAL: There is mild swelling of the right wrist. ED Course Vital Signs 05/15/22 09:15 Temperature 98.6 F Pulse Rate 100 H Respiratory 18 Rate Blood Pressure 168/90 [Left] O2 Sat by Pulse 99 Oximetry - Reevaluation(s) Reevaluation #1: 05/15/22 12:16 Patient states he has improved ED Medical Decision Making - Differential Diagnosis Acute gouty arthritis Critical care attestation.: If time is entered above; I have spent that time in minutes in the direct care of this critically ill patient, excluding procedure time. ED Disposition Clinical Impression: Acute gouty arthritis Disposition: 01 HOME / SELF CARE / HOMELESS Is pt being admited?: No Does the pt Need Aspirin: No Condition: Stable Instructions: Low-Purine Eating Plan Additional Instructions: Return to the emergency department should you develop worsening symptoms, inability to tolerate food or liquids, high fever or any other concerns Prescriptions: Colchicine [Colcrys] 0.6 mg PO DAILY #30 tablet Ibuprofen [Motrin 800 MG tab] 800 mg PO Q8HR PRN #20 tablet PRN Reason: Pain, Moderate (4-6) HYDROcodone/APAP 5-325 [[place] 5/325] 1 - 2 each PO Q6HR PRN #14 tablet PRN Reason: Pain Referrals: CECI ALAS MD [Primary Care Provider] - 3-5 Days PRIMARY CAREMD [Referring] - 3-5 Days Time of Disposition: 12:18
[2022-05-15 16:07] VITALS: BP 154/81
== END 2022-05-15 16:08 | disposition home or self-care (01) ==
LOC: ED 09:15
DX: M10.9 Gout, unspecified (principal); I10 Essential (primary) hypertension; F10.20 Alcohol dependence, uncomplicated
CPT/HCPCS: 96372; 99283; J1885; J2405; J3010; 96374